=== PATIENT | male | born 1970 | race Caucasian/White ===

== ENCOUNTER 2021-12-18 09:25 | Outpatient (REF) | payer OTHER, SELFPAY ==
[2021-12-18 09:58] LABS: MANUAL DIFF FLAG NO
[2021-12-18 11:28] LABS: Basophils Absolute Auto 0.1 X10*3/uL (0.0-0.2); Basophils Percent Auto 1.7 % (0-2); Eosinophils Absolute Auto 0.1 X10*3/uL (0.0-0.4); Eosinophils Percent Auto 1.7 % (0-4); Hematocrit 53.4 % (42.0-52.0); Hemoglobin 17.4 g/dl (14.0-18.0); Imm Gran Abs Auto 0.04 X10*3/uL (0.00-0.03); Imm Gran Pct Auto 0.5 % (0.0-0.4); Immature Retic Fraction 12.3 % (2.3-13.4); Lymphocytes Absolute Auto 1.2 X10*3/uL (1.2-4.9); Lymphocytes Percent Auto 14.8 % (20-40); Mean Corpuscular HGB Conc 32.6 g/dl (31.0-36.0); Mean Corpuscular Hemoglobin 28.2 pg (27.0-33.0); Mean Corpuscular Volume 86.7 fL (80.0-98.0); Mean Platelet Volume 11.7 fL (9.4-12.4); Monocytes Absolute Auto 0.5 X10*3/uL (0.1-1.2); Monocytes Percent Auto 6.3 % (2-11); Neutrophils Absolute Auto 5.9 x10*3/uL (2.0-8.3); Platelet Count 320 X10*3/uL (160-400); Red Blood Count 6.16 X10*6/uL (4.60-5.80); Red Cell Distribution Width 16.7 % (11.0-16.0); Retic HGB Equivalent 31.6 pg (30.0-35.0); Reticulocyte Percent 1.6 % (0.5-1.8); Reticulocytes Absolute 0.097 X10*6/uL (0.026-0.095); White Blood Count 7.8 X10*3/uL (4.8-10.8)
[2021-12-18 12:42] LABS: Alanine Aminotransferase 18 U/L (0-40); Albumin Level 4.4 g/dL (3.5-5.0); Alkaline Phosphatase 39 U/L (39-117); Anion Gap 17 (12-20); Aspartate Amino Transferase 23 U/L (5-37); Bilirubin Total 2.2 mg/dL (0.0-1.0); Blood Urea Nitrogen 14 mg/dL (9-16); Calcium 9.5 mg/dL (8.4-10.2); Carbon Dioxide 25 mmol/L (22-29); Chloride 101 mmol/L (96-108); Cholesterol 120 mg/dL; Estimated Glomerular Filt Rate > 60; Glucose Random 94 mg/dL (60-115); HDL Cholesterol 55 mg/dL; Iron 87 mcg/dL (45-160); LDL Cholesterol Calculated 54 mg/dl; Percent Iron Saturation 30 % (15-50); Potassium 4.8 mmol/L (3.3-5.1); Sodium 138 mmol/L (135-145); Total Iron Binding Capacity 290 mcg/dL (228-428); Total Protein 7.7 g/dL (6.5-8.0); Triglycerides 56 mg/dL; Unsaturated Iron Binding 203 ug/dL
[2021-12-18 12:50] LABS: Ferritin 151 ng/mL (20-250); Free T4 (Free Thyroxine) 0.93 ng/dL (0.71-1.85); Prostate Specific Antigen Scr 0.66 ng/mL (<0.05-4.0); Thyroid Stimulating Hormone 0.79 uIU/mL (0.32-4.0)
[2021-12-18 13:01] LABS: Folate 9.4 ng/mL (> or = 4.0); Vitamin B12 474 pg/mL (200-900)
== END 2021-12-18 09:26 | disposition home or self-care (01) ==
LOC: HO.LAB 09:25
PROVIDERS: PCP Internal Medicine; Visit Provider Internal Medicine
DX: Z12.5 Encounter for screening for malignant neoplasm of prostate (principal); D47.1 Chronic myeloproliferative disease; E78.00 Pure hypercholesterolemia, unspecified
CPT/HCPCS: 36415; 80053; 80061; 82607; 82728; 82746; 83540; 84153; 84439; 84443; 85025; 85045

== ENCOUNTER 2023-11-14 11:16 | Outpatient (AMB) | payer OTHER, SELFPAY ==
[2023-11-14 11:21] VITALS: BP 130/78; PULSE 64; O2SAT 95; BMI 25.3
--- NOTE | 2023-11-14 11:21 | MHC.PC.OV ---
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 Required: No Accompanied by: Self / Same As Patient Allergies No Known Allergies [No Known Allergies*] Allergy (Verified 11/14/23 11:23) Medication List - Last Reconciled 11/14/23 by Meche Jamil MD albuterol sulfate 90 mcg/actuation 2 puffs inhalation QID PRN fluticasone propion-salmeterol 100-50 mcg/dose (Advair Diskus) 1 inh inhalation BID Tobacco use date assessed: 11/14/23 Dental Screening Dental Screen Date: 11/14/23 Did you have a dental visit in the last 12 months?: No Did you have a dental problem in the last 6 months where you did not have access to dental care?: No Was dental information given to patient?: No HPI PE HPI Details 53-year-old male(noted 16 lb weight gain) with a history of asthma myeloproliferative disorder generalized anxiety disorder and thoracic spine fracture coming in for physical exam last seen in May 2022. 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 L lung infection - drained [facility] Medical History (Updated 03/29/22 @ 15:51 by Meche Jamil MD) Colonoscopy refused Colon cancer screening Generalized anxiety disorder Splenic vein thrombosis Thoracic spine fracture Myeloproliferative disorder Asthma Thrombocytosis Surgical History H/O shoulder surgery Social History (Updated 11/14/23 @ 12:04 by Meche Jamil MD) Housing: House Alcohol intake: current Comment: QD 4 drinks Patient Tobacco Use Status: Former Tobacco user Tobacco use type: Cigarette Years Smoked: quit 2006 smokes pot e-Cigarette/Vaping Use: Never Used Second Hand Smoke Exposure: No Current occupational status: employed Cognitive needs: No Hearing needs: No Vision needs: No Questionnaire PHQ-9 Over the last 2 weeks, how often have you been bothered by any of the following problems? 1. Little interest or pleasure in doing things: several days 2. Feeling down, depressed, or hopeless: several days 3. Trouble falling or staying asleep, or sleeping too much: not at all 4. Feeling tired or having little energy: not at all 5. Poor appetite or overeating: not at all 6. Feeling bad about yourself - or that you are a failure or have let yourself or your family down: not at all 7. Trouble concentrating on things, such as reading the newspaper or watching television: not at all 8. Moving or speaking so slowly that other people could have noticed. Or the opposite - being so fidgety or restless that you have been moving around a lot more than usual: not at all 9. Thoughts that you would be better off or of hurting yourself in some way: not at all Total score: 2 Depression Screening Interpretation: Negative Depression Screening Done: Yes Source: Developed by Drs. Mitul Hart, Alysia Tobias, Ray Goodwin and colleagues, with an educational alaina from [employer]. Thrive Questionnaire Date Thrive assessed: 11/14/23 I am a: Patient What is your living situation today?: I have a steady place to live Within the past 12 months, did the food you bought not last and you didn't have the money to get more?: Never true Within the past 12 months, did you worry whether your food would run out before you got money to buy more?: Never true THRIVE Score: 0 AUDIT C Alcohol Use Questionnaire (AUDIT-C) 1. How often do you have a drink containing alcohol?: 2-4 times a month 2. How many drinks containing alcohol do you have on a typical day when you are drinking?: 1 or 2 3. How often do you have six or more drinks on one occasion?: Never Total Score: 2 MARCOS-7 AMB Questionnaire MARCOS-7 Date MARCOS - 7 assessed: 11/14/23 Feeling nervous, anxious, or on edge: 0 = Not at all Not being able to stop or control worryin = Not at all Worrying too much about different things: 0 = Not at all Trouble relaxin = Not at all Being so restless that it is hard to sit still: 0 = Not at all Becoming easily annoyed or irritable: 0 = Not at all Feeling afraid as if something awful might happen: 0 = Not at all Total MARCOS-7 score (0-4 normal; 5-9 mild; 10-14 moderate; 15-21 severe): 0 Source: Developed by Drs. Mitul Hart, Alysia Tobias, Ray Goodwin and colleagues, with an educational alaina from [employer]. MARCOS-7 Assessment Billing MARCOS-7 Assessment Tool: MARCOS-7 Assessment 70300 Review of Systems Const Denies poor appetite and Denies weakness Eyes Denies no additional complaints ENT Reports Normal hearing present, Denies dizziness, Denies nasal congestion, Denies tinnitus and Denies sore throat Card Denies chest pain, Denies syncope, Denies rapid heart rate and Denies dyspnea Resp Denies cough and Denies dyspnea GI Denies change in stool character, Reports constipation, Denies diarrhea, Denies nausea and Denies vomiting Denies dysuria and Denies urinary frequency Neuro Reports Normal hearing present, Denies confusion, Denies dizziness, Denies syncope and Denies weakness Psych Denies confusion Physical exam (Primary Care) Vital Signs: Last Vital Signs Pulse 64 11/14/23 11:21 BP 130/78 11/14/23 11:21 Pulse Ox 95 11/14/23 11:21 Oxygen Delivery Method Room Air 11/14/23 11:21 BMI result Body Mass Index 25.3 Tobacco/Smoking Status: Tobacco use Status Tobacco use date assessed 11/14/23 11/14/23 11:24 Patient Tobacco Use Status Former Tobacco user 11/14/23 12:04 Tobacco use type Cigarette 11/14/23 12:04 e-Cigarette/Vaping Use Never Used 11/14/23 12:04 PHQ-9: PHQ-9 Score PHQ-9: Total score 2 11/14/23 11:57 Depression Screening Interpretation: Negative Thrive Assessment: Date of Thrive Assessment Date Thrive assessed 11/14/23 11/14/23 11:24 Const General: No confusion Orientation/consciousness: No confusion HENMT Head: Yes normocephalic Ears: external ears normal and TM's normal bilaterally Face and sinus: Yes normal facial exam Mouth: moist mucous membranes Throat: Yes tonsils normal Eyes Conjunctivae: conjunctivae normal Pupils: Equal, round and reactive pupils present and Pupil accommodation reflex normal Direct Ophthalmoscopy: normal light reflex Neck Neck: No lymphadenopathy Thyroid: Thyroid normal Chest Chest palpation & inspection: normal inspection of the chest Resp Effort & Inspection: normal respiratory effort and no audible wheezes Auscultation: clear to auscultation bilaterally, no crackles, no wheezes and lung sounds not diminished Cardio Rate: regular rate Rhythm: regular rhythm Peripheral pulses: radial pulses present and dorsalis pedis present GI Other: declined Palpation (GI): no masses Auscultation: normal bowel sounds and normoactive bowel sounds Rectal Exam - Male: Yes deferred Other: declined Skin General skin exam: no rashes or lesions noted Rashes: no rashes Neuro General: No confusion Cranial nerves: Yes Equal, round and reactive pupils present and Yes Normal hearing present Cognition (Neuro): normal cognition Gait exam (Neuro): Normal gait present Motor exam (neuro): 5/5 motor strength present throughout Deep tendon reflexes (DTR's): Right brachioradialis reflex intensity grade: 2+, Left brachioradialis reflex intensity grade: 2+, Right patellar reflex intensity grade: 2+ and Left patellar reflex intensity grade: 2+ Extrem General: No edema Immunizations tetanus-diphtheria toxoids-Td 2 Lf unit-2 Lf unit/0.5 mL IM suspension Performing Provider: Meche Jamil MD [facility] Administered by: FÉLIX Frye on 11/14/23 12:25 Dose Route Admin Location Dispensed Lot Number Expiration Date [facility] [employer] 0.5 mL IM Left Deltoid 0.5 mL [id number] 04/08/24 [id number] [employer] VIS Given Date VIS Provided VIS Publication Date 11/14/23 Single Vaccine 20 Eligibility Eligibility Date Funding Source Not [facility] Eligible 11/14/23 [facility] funds Assessment and Plan Assessment & Plan (1) Annual physical exam: Code(s): Z00.00 - Encounter for general adult medical examination without abnormal findings Plan: Patient is advised to eat healthy, keep well hydrated, keep active and have adequate sleep. (2) Asthma: Code(s): J45.909 - Unspecified asthma, uncomplicated Plan: Presently on Wixela and albuterol. Remember to rinse mouth after using the controller inhaler. (3) Myeloproliferative disorder: Comment: Dr. Owens phlebotomy every 3 weeks Code(s): D47.1 - Chronic myeloproliferative disease (4) Generalized anxiety disorder: Comment: decline counselling 01/2021 Code(s): F41.1 - Generalized anxiety disorder Plan: Stable Orders: Orders Comprehensive Met. Panel Today D47.1 - Chronic myeloproliferative disease Lipid Panel Today D47.1 - Chronic myeloproliferative disease, E78.00 - Pure hypercholesterolemia, unspecified UA CC w/rflx Micro + Cult Today D47.1 - Chronic myeloproliferative disease, R30.0 - Dysuria Complete Blood Count Auto Diff Today D47.1 - Chronic myeloproliferative disease Free T4 (Free Thyroxine) Today D47.1 - Chronic myeloproliferative disease Thyroid Stimulating Hormone Today D47.1 - Chronic myeloproliferative disease Vitamin B12 and Folate Today D47.1 - Chronic myeloproliferative disease Prostate Specific Antigen Scr Today D47.1 - Chronic myeloproliferative disease Td State Immunization Today Z23 - Encounter for immunization Medications: New tetanus-diphtheria toxoids-Td 0.5 mL IM ONCE 0.5 mL 0RF Z23 - Encounter for immunization Coding Level of Care Code Est Pt Prev Care 40-64y([id number]) Diagnoses Annual physical exam Z00.00 Asthma J45.909 Myeloproliferative disorder D47.1 Generalized anxiety disorder F41.1 Additional Codes MARCOS-7 Assessment Billing - MARCOS-7 Assessment Tool: MARCOS-7 Assessment 09644 ([id number])
== END 2023-11-14 12:24 | disposition home or self-care (01) ==
PROVIDERS: PCP Internal Medicine; Visit Provider Internal Medicine
DX: Z00.00 Encounter for general adult medical examination without abnormal findings (principal); J45.909 Unspecified asthma, uncomplicated; D47.1 Chronic myeloproliferative disease; F41.1 Generalized anxiety disorder; Z23 Encounter for immunization

== ENCOUNTER → 2023-11-14 11:16 | Outpatient (BNVA) | payer OTHER, SELFPAY | PROVIDERS: PCP Internal Medicine; Visit Provider Internal Medicine | DX: Z00.00 Encounter for general adult medical examination without abnormal findings (principal); Z23 Encounter for immunization; J45.909 Unspecified asthma, uncomplicated; D47.1 Chronic myeloproliferative disease; F41.1 Generalized anxiety disorder; Z87.891 Personal history of nicotine dependence | CPT/HCPCS: 90471; 90714; 96127; 99396 ==

== ENCOUNTER 2024-02-06 10:35 | Outpatient (REF) | payer OTHER, SELFPAY ==
[2024-02-06 11:52] LABS: Mean Corpuscular HGB Conc 32.3 g/dl (31.0-36.0)
[2024-02-06 11:54] LABS: Basophils Absolute Auto 0.2 X10*3/uL (0.0-0.2); Eosinophils Absolute Auto 0.4 X10*3/uL (0.0-0.4); Eosinophils Percent Auto 4.2 % (0-4); Imm Gran Abs Auto 0.05 X10*3/uL (0.00-0.03); Imm Gran Pct Auto 0.6 % (0.0-0.4); Lymphocytes Absolute Auto 1.2 X10*3/uL (1.2-4.9); Lymphocytes Percent Auto 13.8 % (20-40); Mean Corpuscular Hemoglobin 24.3 pg (27.0-33.0); Monocytes Absolute Auto 0.5 X10*3/uL (0.1-1.2); Monocytes Percent Auto 6.3 % (2-11); Neutrophils Absolute Auto 6.3 x10*3/uL (2.0-8.3); Neutrophils Percent Auto 73.1 % (45-73); Red Blood Count 8.41 X10*6/uL (4.60-5.80); Red Cell Distribution Width 22.1 % (11.0-16.0)
[2024-02-06 12:51] LABS: Free T4 (Free Thyroxine) 1.12 ng/dL (0.71-1.85); Thyroid Stimulating Hormone 0.82 uIU/mL (0.32-4.0)
[2024-02-06 12:54] LABS: Anion Gap 15 (12-20)
[2024-02-06 13:08] LABS: Alanine Aminotransferase 24 U/L (0-40); Albumin Level 4.5 g/dL (3.5-5.0); Alkaline Phosphatase 51 U/L (39-117); Aspartate Amino Transferase 28 U/L (5-37); Bilirubin Total 2.5 mg/dL (0.0-1.0); Blood Urea Nitrogen 11 mg/dL (9-16); Calcium 9.5 mg/dL (8.4-10.2); Carbon Dioxide 29 mmol/L (22-29); Chloride 100 mmol/L (96-108); Cholesterol 111 mg/dL (<200); Estimated Glomerular Filt Rate > 60; Folate 7.9 ng/mL (> or = 4.0); Glucose Random 91 mg/dL (60-115); HDL Cholesterol 48 mg/dL (>40); LDL Cholesterol Calculated 46 mg/dL (<100); Potassium 3.8 mmol/L (3.3-5.1); Prostate Specific Antigen Scr 1.14 ng/mL (<0.05-4.0); Sodium 140 mmol/L (135-145); Total Protein 8.2 g/dL (6.5-8.0); Triglycerides 87 mg/dL (<150); Vitamin B12 562 pg/mL (200-900)
[2024-02-06 13:13] LABS: Platelet Count 242 X10*3/uL (160-400); White Blood Count 8.6 X10*3/uL (4.8-10.8)
[2024-02-06 13:15] LABS: Hemoglobin 20.4 g/dl (14.0-18.0)
[2024-02-06 13:16] LABS: Hematocrit 63.1 % (42.0-52.0)
[2024-02-06 14:32] LABS: Appearance Urine Clear; Color Urine Yellow; Glucose Urine UA Negative (Negative); Leukocyte Esterase Urine Negative (Negative); Nitrite Urine Negative (Negative); UMIC TRIGGER UACC YES; Urine Blood Negative (Negative); Urine Ketones Negative (Negative); Urine Protein 30 (1+) mg/dL (Neg-Trace)
[2024-02-06 14:35] LABS: Bacteria Urine None Seen (None Seen); Hyaline Casts Urine 0-2 /LPF (0-2); RBC Urine 0-2 /HPF (0-2); Squamous Epithelial Cell Urine 0-2 /HPF (0-2); WBC Urine 0-5 /HPF (0-5)
== END 2024-02-06 10:36 | disposition home or self-care (01) ==
LOC: HO.WFDLDS 10:35
PROVIDERS: Visit Provider Internal Medicine
DX: D47.1 Chronic myeloproliferative disease (principal); E78.00 Pure hypercholesterolemia, unspecified
CPT/HCPCS: 36415; 80053; 80061; 81001; 82607; 82746; 84153; 84439; 84443; 85025

== ENCOUNTER 2024-03-05 11:05 | Outpatient (AMB) | payer OTHER, SELFPAY ==
[2024-03-05 11:09] VITALS: BP 142/96; PULSE 79; O2SAT 96; BMI 24.9
--- NOTE | 2024-03-05 11:09 | MHC.PC.OV ---
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 Required: No Accompanied by: Self / Same As Patient Allergies No Known Allergies [No Known Allergies*] Allergy (Verified 03/05/24 11:09) Tobacco use date assessed: 03/05/24 Dental Screening Dental Screen Date: 03/05/24 Did you have a dental visit in the last 12 months?: Yes Did you have a dental problem in the last 6 months where you did not have access to dental care?: No Was dental information given to patient?: Patient has dentist HPI Hypertension HPI Details 53-year-old male with past medical history of asthma, mild proliferative disorder, generalized anxiety disorder and thoracic spine fracture last seen October 2023 coming in for follow up. Today he tells us he has not monitoring his blood pressure at home. He states he did not have a blood pressure cuff and did not want to monitor his blood pressures at home as she knows they are elevated because he has been stressed. Patient notes having increased stress at home due to work and current health. Has a history of seeing many different specialists including [facility] and [facility]. He also mentions having palpitations daily at night that he attributes to stress. Denies any chest pain or shortness of breath with the palpitations. [facility] Medical History (Updated 03/05/24 @ 12:27 by Kerry Vega PA-C) Empyema of lung Colonoscopy refused Colon cancer screening Generalized anxiety disorder Splenic vein thrombosis Thoracic spine fracture Myeloproliferative disorder Asthma Thrombocytosis Surgical History H/O shoulder surgery Social History Housing: House Alcohol intake: current Comment: QD 4 drinks Patient Tobacco Use Status: Former Tobacco user Tobacco use type: Cigarette Years Smoked: quit 2005 smokes pot e-Cigarette/Vaping Use: Never Used Second Hand Smoke Exposure: No Current occupational status: employed Cognitive needs: No Hearing needs: No Vision needs: No Questionnaire PHQ-9 Over the last 2 weeks, how often have you been bothered by any of the following problems? 1. Little interest or pleasure in doing things: several days 2. Feeling down, depressed, or hopeless: several days 3. Trouble falling or staying asleep, or sleeping too much: not at all 4. Feeling tired or having little energy: not at all 5. Poor appetite or overeating: not at all 6. Feeling bad about yourself - or that you are a failure or have let yourself or your family down: not at all 7. Trouble concentrating on things, such as reading the newspaper or watching television: not at all 8. Moving or speaking so slowly that other people could have noticed. Or the opposite - being so fidgety or restless that you have been moving around a lot more than usual: not at all 9. Thoughts that you would be better off or of hurting yourself in some way: not at all Total score: 2 Depression Screening Interpretation: Negative Depression Screening Done: Yes Source: Developed by Drs. Mitul Hart, Alysia Tobias, Ray Goodwin and colleagues, with an educational alaina from [employer]. Thrive Questionnaire Date Thrive assessed: 03/05/24 I am a: Patient What is your living situation today?: I have a steady place to live Within the past 12 months, did the food you bought not last and you didn't have the money to get more?: Never true Within the past 12 months, did you worry whether your food would run out before you got money to buy more?: Never true Do you have trouble paying for medicines?: No Do you have trouble getting transportation to medical appointments?: No Do you have trouble paying your heating and electricity bill?: No Do you have trouble taking care of your child, family member or friend?: No Do you have trouble with day-to-day activities such as bathing, preparing meals, shopping, managing finances, etc.?: No Are you currently unemployed and looking for a job?: No Are you interested in more education?: No Please select the resources that you would like help with: None Currently or been in a relationship where the following occur: No concerns reported THRIVE Score: 0 AUDIT C Alcohol Use Questionnaire (AUDIT-C) 1. How often do you have a drink containing alcohol?: 2-4 times a month 2. How many drinks containing alcohol do you have on a typical day when you are drinking?: 1 or 2 3. How often do you have six or more drinks on one occasion?: Never Total Score: 2 MARCOS-7 AMB Questionnaire MARCOS-7 Date MARCOS - 7 assessed: 03/05/24 Feeling nervous, anxious, or on edge: 3 = Nearly every day Not being able to stop or control worryin = Nearly every day Worrying too much about different things: 3 = Nearly every day Trouble relaxin = Not at all Being so restless that it is hard to sit still: 0 = Not at all Becoming easily annoyed or irritable: 0 = Not at all Feeling afraid as if something awful might happen: 0 = Not at all Total MARCOS-7 score (0-4 normal; 5-9 mild; 10-14 moderate; 15-21 severe): 9 Source: Developed by Drs. Mitul Hart, Alysia Tobias, Ray Goodwin and colleagues, with an educational alaina from [employer]. MARCOS-7 Assessment Billing MARCOS-7 Assessment Tool: MARCOS-7 Assessment 49072 Review of Systems Const Denies body aches, Denies chills, Denies fever(s) and Denies poor appetite Eyes Reports no additional complaints Card Denies chest pain, Denies syncope, Denies edema, Denies irregular heart rhythm, Denies lightheadedness and Denies dyspnea Resp Denies cough and Denies dyspnea GI Denies abdominal pain, Denies constipation, Denies diarrhea, Denies nausea and Denies vomiting Reports no additional complaints Musc Reports no additional complaints and Denies abnormal gait Skin/Breast Reports system reviewed and no additional complaints, except as documented Neuro Denies abnormal gait and Denies syncope Psych Reports no additional complaints Physical exam (Primary Care) Vital Signs: Last Vital Signs Pulse 79 03/05/24 11:09 BP 142/96 H 03/05/24 11:09 Pulse Ox 96 03/05/24 11:09 Oxygen Delivery Method Room Air 03/05/24 11:09 BMI result Body Mass Index 24.9 Tobacco/Smoking Status: Tobacco use Status Tobacco use date assessed 03/05/24 03/05/24 11:14 Patient Tobacco Use Status Former Tobacco user 03/05/24 11:14 Tobacco use type Cigarette 03/05/24 11:14 e-Cigarette/Vaping Use Never Used 03/05/24 11:14 PHQ-9: PHQ-9 Score PHQ-9: Total score 2 03/05/24 11:18 Depression Screening Interpretation: Negative Thrive Assessment: Date of Thrive Assessment Date Thrive assessed 03/05/24 03/05/24 11:14 Currently or been in a relationship where the following occur: No concerns reported Const General: cooperative, healthy appearing, comfortable and no acute distress Orientation/consciousness: patient oriented x3 HENMT Head: Yes normocephalic Ears: hearing grossly normal bilaterally General nose exam: Normal external nose present Eyes General: appearance normal, both eyes and all related structures Conjunctivae: conjunctivae normal Neck Neck: Yes full ROM and Yes no lymphadenopathy Resp Effort & Inspection: normal respiratory effort Auscultation: clear to auscultation bilaterally, no crackles, no rales, no rhonchi and no wheezes Cardio Rate: regular rate Rhythm: regular rhythm Skin General skin exam: no rashes or lesions noted Neuro General: patient oriented x3 Gait exam (Neuro): Normal gait present Extrem General: Yes normal to inspection, Yes full ROM and No edema Psych Affect: normal affect Attitude: cooperative Insight: Good insight present (Psych) Judgement: Good judgement present (Psych) Coding Level of Care Code Est Pt Level 4 (61263) Diagnoses Palpitations R00.2 Generalized anxiety disorder F41.1 Myeloproliferative disorder D47.1 Hypertension I10 Additional Codes MARCOS-7 Assessment Billing - MARCOS-7 Assessment Tool: MARCOS-7 Assessment 79184 ([id number]) Assessment & Plan Assessment & Plan (1) Palpitations: Code(s): R00.2 - Palpitations Category: Medical Plan: Patient complaining of nightly palpitations ordered for 3 day Holter monitor reviewed red flag symptoms and when to present for re-evaluation. (2) Generalized anxiety disorder: Comment: decline counselling 01/2021 Code(s): F41.1 - Generalized anxiety disorder Category: Medical Plan: Continues to decline counseling and not currently on medical management. Does note increased anxiety and stress surrounding current health and work l situation. (3) Myeloproliferative disorder: Comment: Dr. Owens phlebotomy every 3 weeks Code(s): D47.1 - Chronic myeloproliferative disease Category: Medical Plan: Patient having elevated blood lines recommended by Dr. Jamil to have urgent consult with Hematology which patient has been putting off due to work. In the office today patient did become irritated and confrontational when discussing hematology appointment stating he is unable to get the time off from work. I did advise the patient that he will be provided with a note from our office to be excused for this appointment as it is recommended by our office. Discussed possibility of FMLA paperwork as he will need to be absent for several days. Patient declining this and states he wants disability however has not filed paperwork. Discussed with patient at length that he needs to provide our office with his completed portion of disability paperwork before can be filled out. Patient states no one is willing to help him and becomes grossly frustrated. Patient understands he needs to be seen by Hematology and I will have the office reach out to reschedule an appointment. Patient understands and agrees to go to this appointment. If he needs anything further to reach out to the office in the meantime. Otherwise he has an appointment with Dr. Jamil in the coming months. (4) Hypertension: Code(s): I10 - Essential (primary) hypertension Category: Medical Plan: Not currently on medical management blood pressure elevated 142/96. Patient declined to have blood pressure repeated as he states it we will continue to be elevated due to stress. Avoid salt intake and encourage healthy diet and regular exercise. Plan This note was constructed using voice recognition software. While every effort has been made to ensure accuracy and operating engineer, still areas may have been included sometimes these areas may affect the content or meeting of the given symptoms. Total time spent caring for the patient today was 20 minutes. This includes time spent before the visit reviewing the chart, time spent during the visit, and time spent after the visit and documentation. Orders: Orders ECG 3 day holter monitor Today R00.2 - Palpitations
== END 2024-03-05 11:41 | disposition home or self-care (01) ==
PROVIDERS: PCP Internal Medicine
DX: R00.2 Palpitations (principal); F41.1 Generalized anxiety disorder; D47.1 Chronic myeloproliferative disease; I10 Essential (primary) hypertension

== ENCOUNTER → 2024-03-05 11:05 | Outpatient (BNVA) | payer OTHER, SELFPAY | PROVIDERS: PCP Internal Medicine | DX: I10 Essential (primary) hypertension (principal); J45.909 Unspecified asthma, uncomplicated; F41.1 Generalized anxiety disorder; R00.2 Palpitations; D47.1 Chronic myeloproliferative disease | CPT/HCPCS: 96127; 99212 ==

== ENCOUNTER → 2024-04-22 13:06 | Outpatient (BNV) | payer OTHER, SELFPAY | PROVIDERS: PCP Internal Medicine; Referring Provider Internal Medicine; Visit Provider Internal Medicine | DX: D47.1 Chronic myeloproliferative disease (principal) | CPT/HCPCS: 99204; G2211 ==

== ENCOUNTER 2024-05-14 09:53 | Outpatient (AMB) | payer OTHER, SELFPAY ==
--- NOTE | 2024-05-14 09:59 | A.OFFPC_ITS ---
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 Operator Required: No Community Association Manager: Not Required per policy Accompanied by: Self / Same As Patient Allergies No Known Allergies [No Known Allergies*] Allergy (Verified 05/14/24 10:00) Medication List - Last Reconciled 05/14/24 by Meche Jamil MD albuterol sulfate 90 mcg/actuation 2 puffs inhalation QID PRN apixaban (Eliquis) 5 mg PO BID aspirin 1 tab PO DAILY fluticasone propion-salmeterol 100-50 mcg/dose (Advair Diskus) 1 inh inhalation BID hydroxyurea 500 mg PO DAILY pantoprazole (Protonix) 40 mg PO DAILY Tobacco use date assessed: 05/14/24 Dental Screening Dental Screen Date: 03/05/24 [facility] Medical History (Updated 04/22/24 @ 18:16 by Melita Owens MD) Empyema of lung Colonoscopy refused Colon cancer screening Generalized anxiety disorder Splenic vein thrombosis Thoracic spine fracture Myeloproliferative disorder Asthma Thrombocytosis Surgical History H/O shoulder surgery Social History Household Members: None Housing: House Alcohol intake: current Comment: QD 4 drinks Patient Tobacco Use Status: Former Tobacco user Tobacco use type: Cigarette Years Smoked: quit 2006 smokes pot e-Cigarette/Vaping Use: Never Used Second Hand Smoke Exposure: No Substance Use Type: Marijuana service: No Current occupational status: employed Cognitive needs: No Hearing needs: No Vision needs: No Questionnaire Thrive Questionnaire Date Thrive assessed: 03/05/24 MARCOS-7 AMB Questionnaire MARCOS-7 Date MARCOS - 7 assessed: 03/05/24 Source: Developed by Drs. Mitul Hart, Alysia Tobias, Ray Goodwin and colleagues, with an educational alaina from [employer]). Physical exam (Primary Care) Vital Signs: Last Vital Signs Temp 97.5 F 05/14/24 10:00 Pulse 78 05/14/24 10:00 BP 124/78 05/14/24 10:37 Pulse Ox 98 05/14/24 10:00 Oxygen Delivery Method Room Air 05/14/24 10:00 BMI result Body Mass Index 24.9 Tobacco/Smoking Status: Tobacco use Status Tobacco use date assessed 05/14/24 05/14/24 10:04 Patient Tobacco Use Status Former Tobacco user 05/14/24 10:04 Tobacco use type Cigarette 05/14/24 10:04 e-Cigarette/Vaping Use Never Used 05/14/24 10:04 Thrive Assessment: Date of Thrive Assessment Date Thrive assessed 03/05/24 05/14/24 10:04 Const General: alert; No acute distress Eyes Conjunctivae: conjunctivae normal Resp Auscultation: clear to auscultation bilaterally Cardio Rate: regular rate Rhythm: regular rhythm GI Inspection: Yes normal to inspection Extrem General: Yes normal to inspection and No edema Coding Level of Care Code Est Pt Level 4 (51236) Diagnoses Myeloproliferative disorder D47.1 Asthma J45.909 Generalized anxiety disorder F41.1 Hypertension I10 Assessment & Plan Assessment & Plan (1) Myeloproliferative disorder: Comment: Dr. Owens phlebotomy every 3 weeks Code(s): D47.1 - Chronic myeloproliferative disease Category: Medical Plan: Patient has been follow-up with Hematology-Oncology on hydroxyurea and therapeutic phlebotomies being done and continue with aspirin (2) Asthma: Code(s): J45.909 - Unspecified asthma, uncomplicated Category: Medical Plan: Continue with Advair and albuterol (3) Generalized anxiety disorder: Comment: decline counselling 01/2021 Code(s): F41.1 - Generalized anxiety disorder Category: Medical (4) Hypertension: Code(s): I10 - Essential (primary) hypertension Category: Medical Plan: Patient comes in for follow-up. BP is good without med Plan History of Present Illness The patient is a 53-year-old male presenting for follow-up care and management of multifaceted chronic conditions, including essential thrombocythemia with a JAK2 mutation, managed pharmacologically and by therapeutic phlebotomies. Recent diagnostic imaging indicates further varices and esophageal thickening, alongside prior significant blood workup findings, including elevated hemoglobin. Chronic respiratory complaints correlate with stable emphysema and nodular findings. Asthma control is maintained under appropriate inhaled therapies. His thoracic spine complications continue to produce chronic pain, managed conservatively until further orthopedic insight is pursued. The patient reports heightened anxiety and depressive symptoms, opting to manage without additional psychiatric medication due to side effects and past minimal relief. Recent consultations addressed possible advancing gastrointestinal pathology, necessitating ongoing surveillance due to associated risks. Blood pressure remains suboptimal despite adherence to prescribed medication regimens. Reassurance is reinforced concerning routine laboratory monitoring, including renal function due to anticoagulant therapy concerns. Health Maintenance - Continued adherence to Advair and Albuterol inhalers for asthma management. - Hydroxyurea, aspirin, and regular therapeutic phlebotomies for thrombocythemia control. - Maintenance of current antihypertensive regimen. - Recommendation for ongoing evaluation of lung nodules and esophageal varices. - Encouragement of healthy dietary habits to manage blood pressure and overall well-being. - Precautionary discussions regarding potential gastrointestinal risks. Social History - Navigating employment challenges while managing multiple health conditions. - Reports dietary improvements, striving for healthier eating patterns. - Limited financial resources affecting healthcare access and medication purchases. - Manages environmental limitations with a focus on reducing stressors contributing to overall anxiety. Review of Systems - Cardiovascular: Reports episodes of chest pain and visibly high chronic blood pressures. - Musculoskeletal: Reports severe and persistent back pain associated with prior spinal injuries. - Respiratory: Reports no recent exacerbation of ' asthma, but chronic headaches are present. - Neurological: Reports increased occurrences of headaches, possibly linked to vertebral injury and stress. Physical Exam - Respiratory- Lung auscultation performed - No salient abnormalities noted during current visit. Results - Labs: Elevated hemoglobin noted at last outpatient blood work (19.1 g/dL); renal function reported as normal. - Imaging: CAT scan indicates left upper lobe nodules and stable mild emphysema, with nodules unchanged since January 2024. Plan The patient will adhere to hydroxyurea and aspirin therapy under hematology guidance, continuing therapeutic phlebotomies. Radiological surveillance will be scheduled for lung nodule assessment to mitigate oncogenic risk. Ongoing antihypertensive regimens should be evaluated topically against reported chronic hypertension; diet modification aids complement this process. Asthma management with bronchodilator reliance remains suitable given unperturbed severity in recent months. Notable gastric varices necessitate judicious medication review, advocated by widened surveillance of esophageal conditions. Chronic back pain strategies should evolve from current reliance on non-pharmacological interventions and reinforce collaborative care approaches, echoing the patient's aversion to novel medications. Finally, discussions reinforcing ongoing screening measures and lifestyle adaptation reinforce preventative concerns identified in this visit. Patient was informed and verbally consented to the use of an ambient scribe for clinic note documentation during this visit. Discussion Notes Today's consultation focused on managing the patient's intricate medical history, weighing current therapies against emerging symptoms. Discussions included hematology engagement, centered around hydroxyurea continuation and improved blood draw coordination for thrombocythemia surveillance. Risks from nodular lung matter were emphasized as manageable, with patient education provided around scan intervals, weighing any lifestyle alterations deferentially. Cardio-metabolic risks prompted adjustments to hypertension strategies?despite persisting challenges, suggesting reevaluation of dosage efficacy. Review of myeloproliferative disorder management reiterated avoiding novel anticoagulants, patient preference being central. Despite reported discomfort, proactive dialogue stressed non-pharmacological interventions for spinal discomfort. Risk-benefit considerations were comprehensively discussed regarding lifestyle-linked gastric pathologies. Patient Instructions - Continue taking hydroxyurea and daily aspirin as prescribed. - Follow dietary recommendations to lower blood pressure. - Schedule regular follow-ups and blood work to monitor platelet counts and hemoglobin levels. - Report any changes in respiratory symptoms or chest pain immediately. - Adhere to inhaler regimen for asthma management. - Plan for imaging studies as advised for continued nodule evaluation. - Attend and actively participate in regular checkups for optimal chronic disease management. - Seek immediate care for significant changes in symptoms or worsening of current conditions. Orders: Orders Comprehensive Met. Panel Today D47.1 - Chronic myeloproliferative disease Complete Blood Count Auto Diff Today D47.1 - Chronic myeloproliferative disease
[2024-05-14 10:00] VITALS: BP 140/80; PULSE 78; TEMP 36.4; O2SAT 98; BMI 24.9
[2024-05-14 10:37] VITALS: BP 124/78
--- OUTSIDE RECORDS SUMMARY | 2024-05-14 11:09 | XMS_ITS | Continuity of Care Document ---
Author Organization [facility] Address [address] [place] [address] jay, [address] [place] [address]- Care Team Providers Care Supervisor Pigment Making Name Role Phone Not on Staff, PCP Primary Care Physician Unavail able Encounter [facility] Date(s): 04/23/24 - 04/30/24 [facility] [address] [place] [address] Drive [address] [place] [address]- Attending Physician: Not on Staff, Attending MD Encounter Type: Office Visit Allergies, Adverse Reactions, Alerts Substance Criticality Severity Reaction Reaction Severity Status morphine 1 nausea Active 1nausea Immunizations Given and Recorded Vaccine Date Status Refusal Reason tetanus/diphtheria/pertussis, acel(Tdap) 04/10/15 Given Influenza Virus Vaccine (oldterm) 1 12/27/06 Given diphtheria-tetanus toxoids (DT) 05/26/02 Given 1Admin Note: declined Medications Advair Diskus 100 mcg-50 mcg inhalation powder 1, puffs, Inhalation, 2 times a day, # 60 each, Refills 1, Tot. Refills 1, Maintenance, 03/06/18 12:20:36 PM EST, Route to Pharmacy Electronically, [id number], [id number] Start Date: 03/06/18 Stop Date: 05/05/18 Status: Ordered Quantity: 60.0 Unit: each Repeat number: 2 apixaban 5 mg oral tablet = 5 mg, By Mouth, 2 times a day, Refill by Estate Planning Paralegal or PCP, # 60 tablet, 0 Refills, Maintenance, 04/06/24 12:49:00 PM EST, Tablet, [facility], Partial fill upon patient request if theprescription is for a schedule II opioid drug., 188, cm, 04/06/24 11:20:00 EST, Height, 82, kg, 04/03/24 4:02:00 EST, Dry Weight Start Date: 04/06/24 Status: Ordered Quantity: 60.0 Unit: tablet Repeat number: 1 aspirin 81 mg oral tablet, chewable 81 mg, By Mouth, Daily, Refill by Estate Planning Paralegal or PCP, # 30 tablet, Refills 0, Tot. Refills 0, Maintenance, 04/06/24 12:50:00 PM EST, Route to Pharmacy Electronically, [facility], Partialfill upon patient request if the prescription is for a schedule II opioid drug., 188, cm, 04/06/24 11:20:00 EST, Height, 82, kg, 04/03/24 4:02:00 EST, Dry Weight Start Date: 04/06/24 Status: Ordered Quantity: 30.0 Unit: tablet Repeat number: 1 Hydrea 500 mg oral capsule = 500 mg, By Mouth, 2 times a day, Refill by Estate Planning Paralegal or PCP, # 60 tablet, 0 Refills, Acute 05/06/24 10:22:00 PM EDT, 04/06/24 12:51:00 PM EST, Capsule, [facility], Partial fill upon patient request if the prescription is for a schedule II opioid drug., 188, cm, 04/06/24 11:20:00 EST, Height, 82, kg, 04/03/24 4:02:00 EST, Dry Weight Start Date: 04/06/24 Stop Date: 05/06/24 Status: Ordered Quantity: 60.0 Unit: tablet Repeat number: 1 pantoprazole 40 mg oral delayed release tablet = 40 mg, By Mouth, Daily, Take daily for the rest of your life. Refill by PCP or GI., # 30 tablet, 0 Refills, Maintenance, 04/06/24 12:51:00 PM EST, EC Tablet, 188, cm, 04/06/24 11:20:00 EST, Height, 82, kg, 04/03/24 4:02:00 EST, Dry Weight Start Date: 04/06/24 Status: Ordered Quantity: 30.0 Unit: tablet Repeat number: 1 ProAir HFA 90 mcg/inh inhalation aerosol 2 puffs, Inhalation, 4 times a day, PRN Wheezing/Shortness of Breath, Maintenance, 06/02/23 7:08:00 PM EDT, Partial fill upon patient request if the prescription is for a schedule II opioid drug. Start Date: 06/02/23 Status: Ordered Repeat number: 1 Problem List Condition Confirmation Course Effective Dates Status Health Status Informant Asthma Confirmed Active Chronic pain Confirmed Active Compression fracture of spine - T8 Confirmed Active Splenic varices Confirmed Active Gastric varices Confirmed Active Gilbert's disease Confirmed Active History of medical problems 1 Confirmed Active H/O splenomegaly Confirmed Active Low back pain Confirmed Active Major depression Confirmed Active Myeloproliferative disorder Confirmed Active Neck pain Confirmed Active Lower extremity pain Confirmed Active Splenic vein thrombosis Confirmed Active Mid back pain Confirmed Active 1Pain relevant problem list includes: See below Vital Signs Most recent to oldest [Reference Range]: 1 Height 188 cm (04/23/24 9:09 AM) Weight 83 kg (04/23/24 9:09 AM) Oxygen Saturation [94-100 %] 94 % (04/23/24 9:09 AM) Pulse Rate [55-90 bpm] 76 bpm (04/23/24 9:09 AM) Body Mass Index [18.5-24.99 kg/m2] 23.48 kg/m2 (04/23/24 9:09 AM) Blood Pressure [90-138/55-84 mm Hg] 124/ 82mm Hg (04/23/24 9:09 AM) Temperature [96.8-100.4 DegF] 97.3 DegF (04/23/24 9:09 AM) Mode of Delivery (Oxygen) Room air (04/23/24 9:09 AM) Blood pressure sites Arm, left (04/23/24 9:09 AM) Temperature Route Temporal (04/23/24 9:09 AM) Weight Obtained Via Standing scale (04/23/24 9:09 AM) Social History Social History Type Response Smoking Status Former smoker, quit more than 30 days ago entered on: 05/29/23 Sex Sex Representation Male (finding) Note * Lea Koch: PERFORM Event Display: Patient Education/Instruction Authored Date: [id number] Ambulatory Adult Visit Summary [facility] [address] [place] [address] Drive [address] [place] [address] Name: JANNETH HUFF : 1970?? Visit: 04/23/2024 09:01?? Ambulatory Visit Instructions ?? Your Care Team Primary Care Provider Roxanne LEONG, Mark? This Visit Provider Jeison DARBY , Tameka Marquez Vitals Signs Temperature: 97.3 DegF Height: 188 cm Pulse Rate: 76 bpm Weight: 83 kg Systolic Blood Pressure: 124 mm Hg Body Mass Index: 23.48 kg/m2 Diastolic Blood Pressure: 82 mm Hg Body surface area: 2.08 Oxygen Saturation: 94 % ?? What to do next Instructions From Your Provider [facility] [address] [place] [address] [address] [place] [address] ?? [facility]. [facility], [facility], [facility]? Dr. Raven Park MD, MPH, FACS? Dr. Eugene Verde, DO, FACS? Tameka Mchugh, MSN, WEB SUPPORT ENGINEER- ?? Office Phone #: [phone]? Office Fax #: [phone] ? Your most recent CT scan is stable.?There??is??stable scarring in??the??left base.?There??areno new??or??enlarging nodules??or masses.?You do not require??further??routine??follow up??with thoracic??surgery.?? You should continue to follow with your primary care provider and hematology for your other medical issues.?Please call with any further questions or concerns.? Medications The list below reflects the information in our records and provided by you today along with any changes made during this visit. Please continue your medications until treatment is completed or stopped by your provider. If this is different from the information you have or there are other questions,please contact the prescribing provider. What How Much When Instructions Unchanged Albuterol (ProAir HFA 90 mcg/ inh inhalation aerosol) 2 puff(s) Inhalation 4 times a day as needed for Wheezing/Shortness of Breath Unchanged apixaban (apixaban 5 mg oral tablet) 5 Milligram Oral Twice a day Refill by Estate Planning Paralegal or PCP ?? Unchanged Aspirin (aspirin 81 mg oral tablet, chewable) 81 Milligram Oral Daily Refill by Estate Planning Paralegal or PCP ?? Unchanged Fluticasone-Salmeterol (Advair Diskus 100 mcg-50 mcg inhalation powder) 1 puff(s) Inhalation Twice a day Duration: 30 Days Unchanged Hydroxyurea (Hydrea 500 mg oral capsule) 500 Milligram Oral Twice a day Refill by Estate Planning Paralegal or PCP ?? Unchanged Pantoprazole (pantoprazole 40 mg oral delayed release tablet) 40 Milligram Oral Daily Take daily for the rest of your life. ??Refill by PCP or GI. ?? Medications and Immunizations Administered Medications Given During Visit No medications given during this visit.?? Allergies (NKA means No Known Allergies) morphine??(nausea) Common Emergency Awareness Tips IS IT A STROKE? Act FAST and Check for these signs: FACE Does the face look uneven? ARM Does one arm drift down? SPEECH Does their speech sound strange? TIME Call at any sign of stroke ?? Heart Attack Signs Chest discomfort: Most heart attacks involve discomfort in the center of the chest and lasts more than a few minutes, or goes away and comes back. It can feel like uncomfortable pressure, squeezing, fullness or pain. Discomfort in upper body: Symptoms can include pain or discomfort in one or both arms, back, neck, jaw or stomach. Shortness of breath: With or without discomfort. Other signs: Breaking out in a cold sweat, nausea, or lightheaded. Remember, MINUTES DO MATTER. If you experience any of these heart attack warning signs, call to get immediate medical attention! ?? Smoking can increase your chances of developing chronic health problems and can cause harmful effects to other family members in your house. If you smoke, you are strongly encouraged to quit. Please call [employer] at [phone] or [phone] ([phone]) or log in to [email or web address] for referrals to smoking cessation programs. ?? The National Suicide Prevention Hotline is available 19/09 if you or someone you know needs to find a reason to keep living. By calling 1-654-307-talk (8255) you'll be connected to a skilled, trained counselor at a crisis center in your area. [facility] [employer] Portal You can view and manage your care through the patient portal or by using a health care kofi of your choosing. [employer] is a website that allows you to securely view your medical information including your hospital discharge summary, office visit summaries, medications and follow-up visits. You can also request appointments, renew medications, and request access to your medical information using a health care kofi of your choosing, or just ask a question. You can enroll at [email or web address] or register during your next office visit. [facility], in keeping with [facility] guidance, no longer requires face masks for staff, patientsor visitors in most situations. Similiar to time spent indoors at other locations, there is the chance that you were exposed to repiratory viruses during your time with us (such as flu or COVID-19). If you develop symptoms concerning for a viral respiratory infection, please seek testing (and treatment if indicated) from your medical provider or home test kit. ?? Disclaimer: The information provided is of a general nature and is intended to be used in conjunction with the recommendations and advice of your health care practitioner. Every effort has been made to ensure that the information provided is accurate and complete at the time it is provided to you however, as your needs change, or, as new information becomes available, different or additional instructions may be required. ?? If you have questions, please consult with your primary care provider or pharmacist, as appropriate. This information is not intended to serve as substitution for assessment and evaluation by a qualified health care provider. If you do not have a primary care provider, you may find a [facility] provider by calling [facility] [employer] Link at [phone]. Patient Care team information Care Team Personnel Name: Keith Sevilla MD Position: [facility] Physician - Gastroenterology Member Role: Lifetime Consulting Physician Address: [address], [address] [facility] [place], [place] [address] Telecom: Name: Kiana Kelly RN Position: S RN Member Role: Primary Care Nurse Name: Mai Lovett RN Position: S RN Member Role: Primary Care Nurse Name: Kiana Munguia RN Position: [facility] RN Member Role: Primary Care Nurse Name: Antionette TORRES) [place] Position: [facility] RN Member Role: Primary Care Nurse Name: Not on Staff, PCP Position: [facility] Physician (General Medicine) Member Role: PCP Name: Nallely Carter RN Position: [facility] RN Member Role: Primary Care Nurse Name: Luna Bull RN Position: [facility] RN Member Role: Primary Care Nurse Care Team Related Persons Name: WILFRED SÁNCHEZ Name: RAUL SÁNCHEZ Name: NOONE, NOONE Insurance Providers Guarantor name: JANNETH HUFF Health Plan Information #: 6 Payer: [employer] Member Number: [id number] Policy Number: Group Number: Health Plan Information #: 7 Payer: [employer] Member Number: [id number] Policy Number: Group Number: Health Plan Information #: 3 Payer: [employer] [facility] A[facility] Member Number: [id number] Policy Number: NA Group Number: Health Plan Information #: 4 Payer: [employer] Member Number: [id number] Policy Number: NA Group Number: Health Plan Information #: 5 Payer: [employer] Member Number: [id number] Policy Number: NA Group Number: Health Plan Information #: 1 Payer: [employer] Member Number: [id number] Policy Number: NA Group Number: Health Plan Information #: 2 Payer: [employer] Member Number: NA Policy Number: NA Group Number: NA
== END 2024-05-14 10:43 | disposition home or self-care (01) ==
LOC: HO.HMCH 09:54
PROVIDERS: PCP Internal Medicine; Visit Provider Internal Medicine
DX: D47.1 Chronic myeloproliferative disease (principal); J45.909 Unspecified asthma, uncomplicated; F41.1 Generalized anxiety disorder; I10 Essential (primary) hypertension

== ENCOUNTER → 2024-05-14 09:53 | Outpatient (BNVA) | payer OTHER, SELFPAY | PROVIDERS: PCP Internal Medicine; Visit Provider Internal Medicine | DX: D47.1 Chronic myeloproliferative disease (principal); J45.909 Unspecified asthma, uncomplicated; F41.1 Generalized anxiety disorder; I10 Essential (primary) hypertension | CPT/HCPCS: 99212 ==

== ENCOUNTER 2024-06-21 09:21 | Outpatient (REF) | payer MEDICAID, SELFPAY ==
--- OUTSIDE RECORDS SUMMARY | 2024-06-21 09:33 | XMS_ITS | Clinical Summary ---
Author Organization [employer] Address [address] [facility] 7 [place] [address] Care Team Providers Care County Treasurer Name Role Phone Unavailable Primary Care Provider Unavailabl e Social History Tobacco Use Types Packs/Day Years Used Date Smoking Tobacco: Never Assessed Sex and Gender Information Value Date Recorded Sex Assigned at Not on file Legal Sex Male 4:17 PM EDT Gender Identity Male 06/19/2024 2:54 PM EDT Sexual Orientation Straight 06/19/2024 2: 54 PM EDT Plan of Treatment Upcoming Encounters Date Type Department Care Team (Late st Contact Info) Description 07/09/2024 9:00 AM EDT Office Visit [facility] [address] [place] [address] Xiang Gillespie, OD [address] [place] [address] Health Maintenance Due Date Last Done Comments CT Colonography 1969 Colonoscopy 1969 Colorectal Cancer Screening 1969 Depression Screening 1969 FIT DNA/Cologuard 1969 FIT 1969 FOBT 1969 HIV Screening 1969 Lipid Panel 1969 SDOH Screening 1969 Sigmoidoscopy 1969 Alcohol/Substance Use Screening 1981 Tobacco Screening 1981 Hepatitis C Screening 10/17/1987 DTaP/Tdap/Td Vaccines (1 - Tdap) 1988 Hepatitis B Vaccines (1 of 3 - 19+ 3-dose series) 1988 Pneumococcal Vaccine: 50+ Ye ars (1 of 1 - PCV) 10/17/2019 Zoster Vaccines (1 of 2) 10/17/2019 COVID-19 Vaccine ( - 2023-2 5 season) 2023 Influenza Vaccine (#1) 2023 RSV Patients and Pa tients Aged 60 years or older (1 - 1-dose 75+ series) 2044 HIB Vaccines Aged Out No longer eligi ble based on patient's age to complete this topic HPV Vaccines Aged Out No longer eligi ble based on patient's age to complete this topic Hepatitis A Vaccines Aged Out No long er eligible based on patient's age to complete this topic IPV Vaccines Aged Out No longer eligi ble based on patient's age to complete this topic Meningococcal Vaccine Aged Out No mario errol eligible based on patient's age to complete this topic RSV under 20 months Aged Out No longe r eligible based on patient's age to complete this topic Rotavirus Vaccines Aged Out No longer eligible based on patient's age to complete this topic
[2024-06-21 10:21] LABS: MANUAL DIFF FLAG NO
[2024-06-21 10:30] LABS: Basophils Absolute Auto 0.1 X10*3/uL (0.0-0.2); Basophils Percent Auto 1.6 % (0-2); Eosinophils Absolute Auto 0.1 X10*3/uL (0.0-0.4); Eosinophils Percent Auto 2.1 % (0-4); Hemoglobin 18.6 g/dl (14.0-18.0); Imm Gran Abs Auto 0.05 X10*3/uL (0.00-0.03); Imm Gran Pct Auto 0.7 % (0.0-0.4); Lymphocytes Absolute Auto 1.1 X10*3/uL (1.2-4.9); Lymphocytes Percent Auto 16.7 % (20-40); Mean Corpuscular HGB Conc 32.8 g/dl (31.0-36.0); Mean Corpuscular Hemoglobin 27.4 pg (27.0-33.0); Mean Corpuscular Volume 83.6 fL (80.0-98.0); Monocytes Absolute Auto 0.4 X10*3/uL (0.1-1.2); Monocytes Percent Auto 5.5 % (2-11); Neutrophils Percent Auto 73.4 % (45-73); Platelet Count 199 X10*3/uL (160-400); Red Blood Count 6.78 X10*6/uL (4.60-5.80); Red Cell Distribution Width 22.9 % (11.0-16.0); White Blood Count 6.8 X10*3/uL (4.8-10.8)
[2024-06-21 10:43] LABS: Hematocrit 56.7 % (42.0-52.0)
[2024-06-21 11:04] LABS: Anion Gap 9 (12-20); Blood Urea Nitrogen 12 mg/dL (9-16); Carbon Dioxide 29 mmol/L (22-29); Chloride 105 mmol/L (96-108); Potassium 4.2 mmol/L (3.3-5.1); Sodium 139 mmol/L (135-145)
[2024-06-21 11:05] LABS: Alanine Aminotransferase 10 U/L (0-40); Albumin Level 4.2 g/dL (3.5-5.0); Alkaline Phosphatase 45 U/L (39-117); Aspartate Amino Transferase 22 U/L (5-37); Bilirubin Total 2.1 mg/dL (0.0-1.0); Calcium 9.4 mg/dL (8.4-10.2); Estimated Glomerular Filt Rate > 60; Glucose Random 110 mg/dL (60-115); Total Protein 7.3 g/dL (6.5-8.0)
== END 2024-06-21 09:22 | disposition home or self-care (01) ==
LOC: HO.WFDLDS 09:21
PROVIDERS: Visit Provider Internal Medicine
DX: D47.1 Chronic myeloproliferative disease (principal)
CPT/HCPCS: 36415; 80053; 85025

== ENCOUNTER 2024-06-26 10:02 | Outpatient (REF) | payer OTHER, SELFPAY ==
--- OUTSIDE RECORDS SUMMARY | 2024-06-26 11:07 | XMS_ITS | Clinical Summary ---
Author Organization [employer] Address [address] [facility] 7 [place] [address] Care Team Providers Care Patient Care Secretary Name Role Phone Unavailable Primary Care Provider [...] 07/09/2024 9:00 AM EDT Office Visit Nichole [facility] [address] [place] [address] Xiang Gillespie, OD [address] [place] [address] Health Maintenance Due Date Last Done Comments [...]
== END 2024-06-26 10:03 | disposition home or self-care (01) ==
LOC: HO.BBR 10:02
PROVIDERS: Visit Provider Internal Medicine
DX: D75.1 Secondary polycythemia (principal)
CPT/HCPCS: 85014; 85018; 99195

== ENCOUNTER 2024-08-26 09:00 | Outpatient (REF) | payer OTHER, SELFPAY ==
--- OUTSIDE RECORDS SUMMARY | 2024-08-26 09:16 | XMS_ITS | Clinical Summary ---
Author Organization [employer] Address [address] 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 05/02/2024 Active aspirin 81 MG chewable tablet Chew 81 mg Once per day. 05/03/2024 Active Advair Diskus 100-50 MCG/ACT aerosol powder inhale 1 puff two times a day 06/23/2024 Active hydroxyurea (Hydrea) 500 MG capsule Take 1 capsule by mouth Once per day. 05/03/2024 Active pantoprazole (ProtoNix) 40 MG EC tablet Take 1 tablet by mouth Once per day. 05/02/2024 Active albuterol 108 (90 Base) MCG/ACT inhaler Inhale 2 puffs every 6 (six) hours if needed for wheezing. Active Encounters Date Type Department Care Team Description 07/09/2024 9:00 AM EDT Office Visit [facility] [address] [place] [address] Xiang Gillespie, ISAAC Exudative age-related macular degeneration of right eye, unspecified stage (CMS/HCC) (Primary Dx); Hyperopia of both eyes with astigmatism and presbyopia from Last 3 Months Social History Tobacco Use Types Packs/Day Years Used Date Smoking Tobacco: Former Cigarettes Tobacco Cessation:Counseling Given: Not Answered Sex and Gender Information Value Date Recorded Sex Assigned at Male 07/05/2024 1:48 PM EDT Legal Sex Male 4:17 PM EDT Gender Identity Male 06/19/2024 2:54 PM EDT Sexual Orientation Straight 06/19/2024 2: 54 PM EDT Last Filed Vital Signs Vital Sign Reading Time Taken Comments Blood Pressure 124/80 07/09/2024 8:58 AM EDT Pulse - - Temperature 36.2 C (97.2 F) 07/09/2024 8:58 AM EDT Respiratory Rate - - Oxygen Saturation - - Inhaled Oxygen Concentration - - Weight - - Height - - Body Mass Index - - Plan of Treatment Health Maintenance Due Date Last Done Comments CT Colonography 1969 Colonoscopy 1969 Depression Screening 1969 FIT 1969 FOBT 1969 HIV Screening 1969 Lipid Panel 1969 SDOH Screening 1969 Sigmoidoscopy 1969 Disability Screening 1969 Alcohol/Substance Use Screening 1981 Hepatitis C Screening 10/17/1987 DTaP/Tdap/Td Vaccines (1 - Tdap) 1988 Hepatitis B Vaccines (1 of 3 - 19+ 3-dose series) 1988 Pneumococcal Vaccine: 50+ Years (1 of 1 - PCV) 10/17/2019 Zoster Vaccines (1 of 2) 10/17/2019 COVID-19 Vaccine ( - 2023-2 5 season) 2023 Influenza Vaccine (Season Ended) 2024 Tobacco Screening 07/09/2025 07/09/2024 Colorectal Cancer Screening 06/11/2027 FIT DNA/Cologuard 06/11/2027 06/10/2024, 03/16/2021 RSV Patients and Patients Aged 60 years or older (1 - [...] patient's age to complete this topic Meningococcal B Vaccine Aged Out No l onger eligible based on patient's age to complete this topic Meningococcal Vaccine Aged Out No mario errol eligible based on patient's age to complete this topic RSV under 20 months Aged Out No longe r eligible based on patient's age to complete this topic Rotavirus Vaccines Aged Out No longer eligible based on patient's age to complete this topic Procedures Procedure Name Priority Date/Time Associated Diagnosis Comments AMB REFERRAL TO OPHTHALMOLOGY Routine 07/24/2024 Exudative age-related macular degeneration of right eye, unspecified stage ([facility]) OCT, RETINA - OU - BOTH EYES Routine 07/09/2024 Exudative age-related macular degeneration of right eye, unspecified stage ([facility]) from Last 3 Months Results * Referral to Ophthalmology (07/24/2024) Xiang Gillespie OD OUTPATIENT REFERRAL ORDERABLES Final Result * (ABNORMAL) OCT, Retina - OU - Both Eyes (07/09/2024) Xiang Gillespie OD OPHTH TOMOGRAPHY Final Result from Last 3 Months Insurance [facility]
== END 2024-08-26 09:01 | disposition home or self-care (01) ==
LOC: HO.BBR 09:00
PROVIDERS: PCP Internal Medicine; Visit Provider Internal Medicine
DX: D75.1 Secondary polycythemia (principal)
CPT/HCPCS: 85018; 99195

== ENCOUNTER 2024-09-27 09:40 | Outpatient (AMB) | payer OTHER, SELFPAY ==
[2024-09-27 09:44] VITALS: BP 138/86; PULSE 84; RESP 16; TEMP 36.2; O2SAT 98; BMI 26.9
--- NOTE | 2024-09-27 09:44 | MHC.PC.OV ---
Vital Signs 09/27/24 09:44 Height 6 ft 1 in Weight 204 lb BMI 26.9 BP 138/86 Blood Pressure Location Lt brachial Position Sitting Respiration 16 Pulse 84 Pulse Source Pulse Oximeter Temp 97.1 F Temp Source Temporal Artery Scan Pulse Oximetry (%) 98 Oxygen Delivery Method Room Air Intake Visit Reasons: lower back pain & Pt back leg knee discomfort Allergies No Known Allergies (No Known Allergies*) Allergy (Verified 09/27/24 09:48) Medication List - Last Reconciled 09/27/24 by Meche Jamil MD albuterol sulfate 90 mcg/actuation 2 puffs inhalation QID PRN apixaban (Eliquis) 5 mg PO BID aspirin 1 tab PO DAILY cyclobenzaprine 10 mg PO TID PRN fluticasone propion-salmeterol 100-50 mcg/dose (Advair Diskus) 1 inh inhalation BID hydroxyurea 500 mg PO DAILY pantoprazole (Protonix) 40 mg PO DAILY Tobacco use date assessed: 09/27/24 Dental Screening Dental Screen Date: 09/27/24 Did you have a dental visit in the last 12 months?: No Did you have a dental problem in the last 6 months where you did not have access to dental care?: No Was dental information given to patient?: No [facility] Medical History (Updated 09/27/24 @ 10:00 by Meche Jamil MD) Empyema of lung Colonoscopy refused Colon cancer screening Generalized anxiety disorder Splenic vein thrombosis Thoracic spine fracture Myeloproliferative disorder Asthma Thrombocytosis Surgical History H/O shoulder surgery Social History Household Members: None Housing: House Alcohol intake: current Comment: QD 4 drinks Patient Tobacco Use Status: Former Tobacco user Tobacco use type: Cigarette Years Smoked: quit 2006 smokes pot e-Cigarette/Vaping Use: Never Used Second Hand Smoke Exposure: No Substance Use Type: Marijuana service: No Current occupational status: employed Cognitive needs: No Hearing needs: No Vision needs: No Questionnaire PHQ-9 Over the last 2 weeks, how often have you been bothered by any of the following problems? 1. Little interest or pleasure in doing things: several days 2. Feeling down, depressed, or hopeless: several days 3. Trouble falling or staying asleep, or sleeping too much: not at all 4. Feeling tired or having little energy: not at all 5. Poor appetite or overeating: not at all 6. Feeling bad about yourself - or that you are a failure or have let yourself or your family down: not at all 7. Trouble concentrating on things, such as reading the newspaper or watching television: not at all 8. Moving or speaking so slowly that other people could have noticed. Or the opposite - being so fidgety or restless that you have been moving around a lot more than usual: not at all 9. Thoughts that you would be better off or of hurting yourself in some way: not at all Total score: 2 Depression Screening Interpretation: Negative Depression Screening Done: Yes Source: Developed by Drs. Mitul Hart, Alysia Tobias, Ray Goodwin and colleagues, with an educational alaina from [employer]. Thrive Questionnaire Date Thrive assessed: 03/05/24 I am a: Patient What is your living situation today?: I have a steady place to live Within the past 12 months, did the food you bought not last and you didn't have the money to get more?: Never true Within the past 12 months, did you worry whether your food would run out before you got money to buy more?: Never true Do you have trouble paying for medicines?: No Do you have trouble getting transportation to medical appointments?: No Do you have trouble paying your heating and electricity bill?: No Do you have trouble taking care of your child, family member or friend?: No Do you have trouble with day-to-day activities such as bathing, preparing meals, shopping, managing finances, etc.?: No Are you currently unemployed and looking for a job?: No Are you interested in more education?: No Please select the resources that you would like help with: None Currently or been in a relationship where the following occur: No concerns reported THRIVE Score: 0 AUDIT C Alcohol Use Questionnaire (AUDIT-C) 1. How often do you have a drink containing alcohol?: 2-4 times a month 2. How many drinks containing alcohol do you have on a typical day when you are drinking?: 1 or 2 3. How often do you have six or more drinks on one occasion?: Never Total Score: 2 MARCOS-7 AMB Questionnaire MARCOS-7 Date MARCOS - 7 assessed: 03/05/24 Feeling nervous, anxious, or on edge: 3 = Nearly every day Not being able to stop or control worryin = Nearly every day Worrying too much about different things: 3 = Nearly every day Trouble relaxin = Not at all Being so restless that it is hard to sit still: 0 = Not at all Becoming easily annoyed or irritable: 0 = Not at all Feeling afraid as if something awful might happen: 0 = Not at all Total MARCOS-7 score (0-4 normal; 5-9 mild; 10-14 moderate; 15-21 severe): 9 Source: Developed by Drs. Mitul Hart, Alysia Tobias, Ray Goodwin and colleagues, with an educational alaina from [employer]. Physical exam (Primary Care) Vital Signs: Last Vital Signs Temp 97.1 F 09/27/24 09:44 Pulse 84 09/27/24 09:44 Resp 16 09/27/24 09:44 BP 138/86 09/27/24 09:44 Pulse Ox 98 09/27/24 09:44 Oxygen Delivery Method Room Air 09/27/24 09:44 BMI result Body Mass Index 26.9 Tobacco/Smoking Status: Tobacco use Status Tobacco use date assessed 09/27/24 09/27/24 09:49 Patient Tobacco Use Status Former Tobacco user 09/27/24 09:49 Tobacco use type Cigarette 09/27/24 09:49 e-Cigarette/Vaping Use Never Used 09/27/24 09:49 PHQ-9: PHQ-9 Score PHQ-9: Total score 2 09/27/24 18:10 Depression Screening Interpretation: Negative Thrive Assessment: Date of Thrive Assessment Date Thrive assessed 03/05/24 09/27/24 09:49 Currently or been in a relationship where the following occur: No concerns reported Const General: alert; No acute distress Eyes Conjunctivae: conjunctivae normal Resp Auscultation: clear to auscultation bilaterally Cardio Rate: regular rate Rhythm: regular rhythm GI Inspection: Yes normal to inspection Back/Spine/Pelvis Other: Patient has tenderness on the thoracic spine midline. Radiating to the right leg Walks with the cane and Extrem General: Yes normal to inspection and No edema Coding Level of Care Code Est Pt Level 4 (49180) Complex EM visit Add On G2211 Diagnoses Myeloproliferative disorder D47.1 Thoracic spine fracture S22.009A Hypertension I10 Generalized anxiety disorder F41.1 Barretts esophagus K22.70 Hiatal hernia K44.9 Assessment & Plan Assessment & Plan (1) Myeloproliferative disorder: Comment: Dr. Owens phlebotomy every 3 weeks Code(s): D47.1 - Chronic myeloproliferative disease Category: Medical Plan: Patient follows up with Hematology-Oncology and on therapeutic phlebotomy (2) Thoracic spine fracture: Comment: T8, T9 February 2018, February 2019 CT scan cervical mild cervical spondylosis foraminal stenosis T8 fracture stable Code(s): S22.009A - Unspecified fracture of unspecified thoracic vertebra, initial encounter for closed fracture Category: Medical (3) Hypertension: Code(s): I10 - Essential (primary) hypertension Category: Medical Plan: Continue to monitor (4) Generalized anxiety disorder: Comment: decline counselling 01/2021 Code(s): F41.1 - Generalized anxiety disorder Category: Medical (5) Barretts esophagus: Code(s): K22.70 - Gore's esophagus without dysplasia Category: Medical Plan: Avoid the foods that causes that usually spicy foods, tomato products, juices, coffee, soda and foods that your sensitive to. After eating do not lie down, allow 3-4 hours before in lie down. And keep the head of bed above 30 degrees to avoid the acid from going up. (6) Hiatal hernia: Code(s): K44.9 - Diaphragmatic hernia without obstruction or gangrene Category: Medical Plan History of Present Illness The patient is a 53-year-old male presenting for follow-up of multiple chronic conditions including essential thrombocythemia, polycythemia vera, and Gore's esophagus. The patient has a history of essential thrombocythemia diagnosed in 2017, which has been managed with therapeutic phlebotomy and Hydrea 500 mg daily. He also takes baby aspirin as part of his treatment regimen. In April 2016, the patient presented with splenic vein thrombosis, and an EGD revealed Gore's esophagus. He has been diagnosed with polycythemia vera with a positive JAK2 mutation, and his bone marrow biopsy showed features consistent with essential thrombocythemia. The patient has a history of hypertension and asthma, both of which are currently managed with medication. He also has generalized anxiety disorder, which is part of his chronic health conditions. In February 2024, the patient experienced abdominal pain, and a CTA revealed splenomegaly with evolving infarcts and distal esophageal thickening. He has liver cirrhosis and esophageal varices, which were noted during an EGD in March 2024. The patient has a history of thoracic spine fracture, which contributes to his chronic back pain. He reports significant pain radiating to his right leg, affecting his mobility and requiring the use of a cane. The patient has been advised to follow up with gastroenterology for his Gore's esophagus and esophageal varices. He is currently on pantoprazole for acid reflux management due to his hiatal hernia. Health Maintenance - Preventative care: Colon cancer screening with stool test (Liz) is up to date - Advised to follow up with gastroenterology for Gore's esophagus and esophageal varices Social History - Employment: Patient has not worked in two years and is experiencing financial difficulties due to unemployment and denied disability claims. - Functional status: Patient reports significant mobility issues due to back pain and uses a homemade walking stick for support. - Exercise: Patient has reduced physical activity due to pain and mobility issues. Review of Systems - Musculoskeletal: Reports significant back pain radiating to the right leg, affecting mobility. - Gastrointestinal: Reports abdominal pain, reflux, and has a history of Gore's esophagus. - Cardiovascular: Denies chest pain or palpitations. - Respiratory: Reports asthma, denies recent exacerbations. Physical Exam - Musculoskeletal: Tenderness on thoracic spine midline, radiating pain to the right leg, patient walks with a cane. Results - Labs: Hemoglobin 18.6 g/dL, Hematocrit 56.7%, Bilirubin 2.1 mg/dL, Blood sugar 110 mg/dL, Electrolytes and renal function normal. - Imaging: CTA in February 2024 showed splenomegaly with evolving infarcts and distal esophageal thickening. - Procedures: EGD in March 2024 revealed Gore's esophagus and esophageal varices. Plan The patient will continue with therapeutic phlebotomy and Hydrea 500 mg daily for management of essential thrombocythemia and polycythemia vera. He is advised to continue taking baby aspirin and Eliquis twice daily for thrombosis prevention. For Gore's esophagus and esophageal varices, the patient is advised to follow up with gastroenterology and continue pantoprazole for acid reflux management. Lifestyle modifications including dietary changes and head elevation during sleep are recommended to manage reflux symptoms. The patient is referred to pain management for chronic back pain and has been prescribed cyclobenzaprine for muscle spasms. An updated x-ray of the spine has been requested to assess the current status of the thoracic spine fracture. Patient was informed and verbally consented to the use of an ambient scribe for clinic note documentation during this visit. Discussion Notes I discussed with the patient the importance of continuing therapeutic phlebotomy and Hydrea for managing essential thrombocythemia and polycythemia vera. We reviewed the need for ongoing use of baby aspirin and Eliquis to prevent thrombosis. I emphasized the necessity of gastroenterology follow-up for Gore's esophagus and esophageal varices and the continuation of pantoprazole for reflux management. Lifestyle modifications were discussed, including dietary changes and head elevation during sleep to alleviate reflux symptoms. I referred the patient to pain management for chronic back pain and prescribed cyclobenzaprine for muscle spasms. An updated x-ray of the spine was requested to evaluate the thoracic spine fracture. Patient Instructions - Continue therapeutic phlebotomy and take Hydrea 500 mg daily as prescribed. - Take baby aspirin and Eliquis twice daily to prevent blood clots. - Follow up with gastroenterology for Gore's esophagus and esophageal varices. - Continue taking pantoprazole for acid reflux management. - Make dietary changes and elevate the head during sleep to help with reflux. - Follow up with pain management for back pain and take cyclobenzaprine as needed for muscle spasms. - Schedule an x-ray to assess the thoracic spine fracture. Orders: Orders Thyroid Stimulating Hormone 3 Months D47.1 - Chronic myeloproliferative disease Complete Blood Count Auto Diff 3 Months D47.1 - Chronic myeloproliferative disease Comprehensive Met. Panel 3 Months D47.1 - Chronic myeloproliferative disease Free T4 (Free Thyroxine) 3 Months D47.1 - Chronic myeloproliferative disease XR thoracic spine 2V Today S22.009A - Unspecified fracture of unspecified thoracic vertebra, initial encounter for closed fracture Referrals Pain Management Referral S22.009A - Unspecified fracture of unspecified thoracic vertebra, initial encounter for closed fracture Medications: New cyclobenzaprine 10 mg PO TID PRN 60 tabs 2RF muscle spasm S22.009A - Unspecified fracture of unspecified thoracic vertebra, initial encounter for closed fracture Refilled albuterol sulfate 90 mcg/actuation 2 puffs inhalation QID PRN 8.5 grams 0RF shortness of breath or wheezing J45.909 - Unspecified asthma, uncomplicated
--- OUTSIDE RECORDS SUMMARY | 2024-09-27 09:50 | XMS_ITS | Clinical Summary ---
Author Organization [facility] Address [address] [facility] 7 [place] [address] Care Team Providers Care Violin Tutor Name Role Phone Unavailable Primary Care Provider [...] Description 07/09/2024 9:00 AM EDT Office Visit [place] [facility] [address] [place] [address] Xiang Gillespie, ISAAC Exudative age-related macular degeneration [...] Colonoscopy 1969 Depression Screening 1969 FIT 1969 HIV Screening 1969 Lipid Panel 1969 SDOH Screening 1969 Sigmoidoscopy 1969 Disability Screening 1969 Alcohol/Substance Use Screening 1981 Hepatitis C Screening 10/17/1987 DTaP/Tdap/Td Vaccines (1 - Tdap) 1988 Hepatitis B Vaccines (1 of 3 - 19+ 3-dose series) 1988 Pneumococcal Vaccine: 50+ Years (1 of 1 - PCV) 10/17/2019 Zoster Vaccines (1 of 2) 10/17/2019 COVID-19 Vaccine (1 - 2023-2 5 season) 2023 Influenza Vaccine (#1) 2024 FOBT 06/10/2025 06/10/2024, 03/16/2021 Tobacco Screening 07/09/2025 07/09/2024 Colorectal Cancer Screening [...] macular degeneration of right eye, unspecified stage ([facility]) OCT, RETINA - OU - BOTH EYES Routine 07/09/2024 Exudative age-related macular degeneration of right eye, unspecified stage ([facility]) from Last 3 Months Results * Referral to Ophthalmology (07/24/2024) Xiang Gillespie OD OUTPATIENT REFERRAL ORDERABLES Final Result * (ABNORMAL) OCT, Retina - OU - Both Eyes (07/09/2024) Xaing Gillespie OD OPHTH TOMOGRAPHY Final Result from Last 3 Months Insurance [facility]
== END 2024-09-27 10:19 | disposition home or self-care (01) ==
LOC: HO.HMCH 09:41
PROVIDERS: PCP Internal Medicine; Visit Provider Internal Medicine
DX: D47.1 Chronic myeloproliferative disease (principal); S22.009A Unspecified fracture of unspecified thoracic vertebra, initial encounter for closed fracture; I10 Essential (primary) hypertension; F41.1 Generalized anxiety disorder; K22.70 Barrett's esophagus without dysplasia; K44.9 Diaphragmatic hernia without obstruction or gangrene

== ENCOUNTER → 2024-09-27 09:40 | Outpatient (BNVA) | payer OTHER, SELFPAY | PROVIDERS: PCP Internal Medicine; Visit Provider Internal Medicine | DX: D47.1 Chronic myeloproliferative disease (principal); S22.069D Unspecified fracture of T7-T8 vertebra, subsequent encounter for fracture with routine healing; S22.079D Unspecified fracture of T9-T10 vertebra, subsequent encounter for fracture with routine healing; X58.XXXD Exposure to other specified factors, subsequent encounter; I10 Essential (primary) hypertension; F41.1 Generalized anxiety disorder; K22.70 Barrett's esophagus without dysplasia; K44.9 Diaphragmatic hernia without obstruction or gangrene; Z13.31 Encounter for screening for depression | CPT/HCPCS: 99212 ==

== ENCOUNTER 2024-10-11 10:06 | Outpatient (AMB) | payer OTHER, SELFPAY ==
--- OUTSIDE RECORDS SUMMARY | 2024-10-11 10:17 | XMS_ITS | Clinical Summary ---
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 Active Social History Tobacco Use Types Packs/Day Years [...] 5 season) 2023 Influenza Vaccine (#1) 2024 Tobacco Screening 07/09/2025 07/09/2024 Colorectal Cancer [...] degeneration of right eye, unspecified stage (CMS/HCC) from Last 3 Months Results * Referral to Ophthalmology (07/24/2024) Xiang Gillespie ISAAC OUTPATIENT REFERRAL ORDERABLES Final Result from Last 3 Months Insurance [facility]
--- NOTE | 2024-10-11 10:28 | MHC.OFFVIS ---
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: No Allergies No Known Allergies (No Known Allergies*) Allergy (Verified 10/21/24 09:50) Medication List - Last Reconciled 10/11/24 by Chinyere Bhakta LPN albuterol sulfate 90 mcg/actuation (Ventolin HFA) 2 puffs inhalation QID PRN apixaban (Eliquis) 5 mg PO BID aspirin 1 tab PO DAILY cyclobenzaprine 10 mg PO TID PRN fluticasone propion-salmeterol 100-50 mcg/dose (Advair Diskus) 1 inh inhalation BID hydroxyurea 500 mg PO DAILY pantoprazole (Protonix) 40 mg PO DAILY HPI HPI Unspecified fracture of thoracic vertebra: Details: History of Present Illness The patient is a 53-year-old male presenting with total body pain and polyarthralgia. He reports that his pain is a result of previous jobs requiring heavy lifting, which has led to an inability to sleep normally or perform daily activities. The pain is exacerbated by weather changes and movement, with an average intensity of 9 out of 10. The patient has a history of cervical disc herniation and degeneration, which he was unaware of until recently. He experiences headaches that radiate into his head, causing significant discomfort and tears. 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 He is under regular hematological care, including phlebotomy and medication with hydroxyurea and Eliquis. Additionally, the patient suffers from depression and anxiety, exacerbated by his current financial and social situation, including unemployment and the recent loss of his dog. He has been unable to work for two years due to his medical conditions and is currently seeking disability support. Pain Description - Onset and Timing: Pain is chronic, related to previous heavy lifting jobs. - Quality and Character: Described as severe, with an intensity of 9/10. - Primary Location: Total body pain with specific mention of cervical region. - Exacerbating Factors: Weather changes and movement worsen the pain. - Interference: Pain interferes with sleep and daily activities. Physical Exam - Appears afebrile. - Alert and oriented. - Mood and affect appropriate. - Follows and participates in conversation appropriately. - Respiratory effort is unlabored. - Able to transition from sit to stand unassisted. - Ambulates with bilaterally normal heel strike and toe off. Pain Management - Affect: Pain significantly impacts mood, contributing to depression and anxiety. - Analgesia: Current pain level is 9/10; patient is on hydroxyurea and Eliquis for related conditions. - Activities of Daily Living: Pain limits ability to perform daily activities and work. - Aberrant Drug Related Behaviors: No aberrant behaviors reported. [facility] Medical History (Updated 10/21/24 @ 10:58 by Fritz Carreno MD) Empyema of lung Colonoscopy refused Colon cancer screening Generalized anxiety disorder Splenic vein thrombosis Thoracic spine fracture Myeloproliferative disorder Asthma Thrombocytosis Surgical History H/O shoulder surgery Social History Household Members: None Housing: House Alcohol intake: current Comment: QD 4 drinks Patient Tobacco Use Status: Former Tobacco user Tobacco use type: Cigarette Years Smoked: quit 2006 smokes pot e-Cigarette/Vaping Use: Never Used Second Hand Smoke Exposure: No Substance Use Type: Marijuana service: No Current occupational status: employed Cognitive needs: No Hearing needs: No Vision needs: No Physical Exam Vital Signs: Last Vital Signs Pulse 82 10/11/24 10:29 BP 128/82 10/11/24 10:29 Pulse Ox 97 10/11/24 10:29 Oxygen Delivery Method Room Air 10/11/24 10:29 BMI result Body Mass Index 24.4 Assessment & Plan Assessment & Plan (1) Thoracic spine fracture: Comment: T8, T9 February 2018, February 2019 CT scan cervical mild cervical spondylosis foraminal stenosis T8 fracture stable Code(s): S22.009A - Unspecified fracture of unspecified thoracic vertebra, initial encounter for closed fracture Category: Medical (2) Degeneration of cervical disc without myelopathy: Code(s): M50.30 - Other cervical disc degeneration, unspecified cervical region Category: Medical Plan Plan - Plan to review patient's imaging records, including MRIs and x-rays, during the next visit. - Consideration of initiating treatment with possible PRATEEK for cervical disc herniation related radiculopathy based on imaging findings. - Continue current hematological management with hydroxyurea and Eliquis. - Address psychological health by acknowledging depression and anxiety, and consider referral to mental health services. Patient was informed and verbally consented to the use of an ambient scribe for clinic note documentation during this visit. Discussion Notes I discussed with the patient the importance of bringing his imaging records, including MRIs and x-rays, for the next appointment to better assess his cervical disc herniation and overall condition. We talked about the potential for starting treatment for his neck pain once the imaging is reviewed. I also acknowledged his psychological distress and suggested considering mental health support. Patient Instructions - Bring all imaging records, including MRIs and x-rays, to the next appointment. - Continue current medications as prescribed. - Consider seeking mental health support for depression and anxiety. Coding Level of Care Code New Pt Level 4 (33652) Diagnoses Thoracic spine fracture S22.009A Degeneration of cervical disc without myelopathy M50.30
[2024-10-11 10:29] VITALS: BP 128/82; PULSE 82; O2SAT 97; BMI 24.4
== END 2024-10-11 10:52 | disposition home or self-care (01) ==
LOC: HO.PMC 10:06
PROVIDERS: PCP Internal Medicine; Visit Provider Internal Medicine
DX: M50.30 Other cervical disc degeneration, unspecified cervical region (principal); R52 Pain, unspecified
CPT/HCPCS: 99204

== ENCOUNTER → 2024-10-11 10:06 | Outpatient (BNVA) | payer OTHER, SELFPAY | PROVIDERS: PCP Internal Medicine; Visit Provider Internal Medicine | DX: M50.30 Other cervical disc degeneration, unspecified cervical region (principal); S22.009A Unspecified fracture of unspecified thoracic vertebra, initial encounter for closed fracture | CPT/HCPCS: 99202 ==

== ENCOUNTER 2024-10-21 09:39 | Outpatient (AMB) | payer OTHER, SELFPAY ==
--- NOTE | 2024-10-21 09:48 | MHC.OFFVIS ---
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 The patient reports a history of thoracic spine fractures, which occurred many years ago, leading to persistent pain and discomfort. The fractures have resulted in significant pain that radiates from the shoulders to the lower back, causing numbness in the arms and hands. The patient also has degenerative disc disease, which has been confirmed by imaging studies, although the most recent MRI is nine years old. The degenerative changes are associated with arthritis, which has been noted to involve the nerves, contributing to the patient's pain. The patient describes the pain as severe, with a grinding sensation in the neck and a feeling of compression in the back, often likened to being crushed. The pain is exacerbated by movement and has significantly impacted the patient's quality of life, limiting daily activities and causing distress. Previous interventions have included physical therapy, which was deemed ineffective due to the severity of the spinal damage and arthritis. The patient has been on various medications, including muscle relaxers, but is cautious about overuse due to potential side effects. Pain Description - Onset: Pain has been present for many years due to thoracic spine fractures. - Quality: Described as severe with grinding sensation in the neck and compression in the back. - Location: Pain radiates from shoulders to lower back, causing numbness in arms and hands. - Exacerbating factors: Movement worsens the pain. - Impact: Limits daily activities and causes significant distress. Physical Exam - Appears afebrile. - Alert and oriented. - Mood and affect frustrated. - Follows and participates in conversation appropriately. - Respiratory effort is unlabored. Results - Imaging: Previous MRI from nine years ago showing degenerative disc disease. Pain Management - Affect: Pain causes significant distress and impacts psychological wellbeing. - Analgesia: Patient uses muscle relaxers cautiously due to potential side effects. - Activities of Daily Living: Pain limits daily activities significantly. - Aberrant Drug Related Behaviors: No evidence of medication misuse reported. [facility], [facility] Medical History (Updated 10/21/24 @ 10:58 by Fritz Carreno MD) Empyema of lung Colonoscopy refused Colon cancer screening Generalized anxiety disorder Splenic vein thrombosis Thoracic spine fracture Myeloproliferative disorder Asthma Thrombocytosis Surgical History H/O shoulder surgery Social History Household Members: None Housing: House Alcohol intake: current Comment: QD 4 drinks Patient Tobacco Use Status: Former Tobacco user Tobacco use type: Cigarette Years Smoked: quit 2005 smokes pot e-Cigarette/Vaping Use: Never Used Second Hand Smoke Exposure: No Substance Use Type: Marijuana service: No Current occupational status: employed Cognitive needs: No Hearing needs: No Vision needs: No Physical Exam Vital Signs: Last Vital Signs Pulse 88 10/21/24 09:49 BP 143/86 H 10/21/24 09:49 Pulse Ox 97 10/21/24 09:49 Oxygen Delivery Method Room Air 10/21/24 09:49 BMI result Body Mass Index 24.4 Assessment & Plan Assessment & Plan (1) Degeneration of cervical disc without myelopathy: Code(s): M50.30 - Other cervical disc degeneration, unspecified cervical region Category: Medical Plan Plan - Order a new MRI to assess current status of degenerative cervical disc disease. Last MRI done in 2016. - Consider cervical epidural steroid injection for neck and upper back pain management. - Follow-up after MRI to discuss results and further management options. Patient was informed and verbally consented to the use of an ambient scribe for clinic note documentation during this visit. Discussion Notes I discussed with the patient the need for a new MRI to better understand the current state of his degenerative disc disease and thoracic spine fractures, given that the last imaging was nine years old. We also talked about the potential benefits of a cervical epidural steroid injection to manage his neck and upper back pain. I explained that the MRI results would guide further treatment decisions, and we agreed to follow up after the imaging is completed. Patient Instructions - Schedule and complete the MRI as soon as possible. - Follow up with the clinic after the MRI to discuss results and next steps. - Consider the option of a cervical epidural steroid injection for pain management. Orders: Orders MR cervical spine wo con 10/21/24 M50.30 - Other cervical disc degeneration, unspecified cervical region Coding Level of Care Code Est Pt Level 3 (25229) Diagnoses Degeneration of cervical disc without myelopathy M50.30
[2024-10-21 09:49] VITALS: BP 143/86; PULSE 88; O2SAT 97; BMI 24.4
--- OUTSIDE RECORDS SUMMARY | 2024-10-21 10:29 | XMS_ITS | Clinical Summary ---
Author Organization [employer] Address [address] [place] [address] Care Team Providers Care Forms Analysis Manager Name Role Phone Unavailable Primary Care Provider [...] Final Result from Last 3 Months Insurance [facility] ([facility]
== END 2024-10-21 11:01 | disposition home or self-care (01) ==
LOC: HO.PMC 09:40
PROVIDERS: PCP Internal Medicine; Visit Provider Internal Medicine
DX: M50.30 Other cervical disc degeneration, unspecified cervical region (principal)
CPT/HCPCS: 99213

== ENCOUNTER → 2024-10-21 09:39 | Outpatient (BNVA) | payer OTHER, SELFPAY | PROVIDERS: PCP Internal Medicine; Visit Provider Internal Medicine | DX: M50.33 Other cervical disc degeneration, cervicothoracic region (principal) | CPT/HCPCS: 99212 ==

== ENCOUNTER 2024-10-24 08:55 | Outpatient (REF) | payer OTHER, SELFPAY ==
--- OUTSIDE RECORDS SUMMARY | 2024-10-24 09:45 | XMS_ITS | Clinical Summary ---
Author Organization [employer] Address [address] [place] [address] Care Team Providers Care Oil Producer Name Role Phone Unavailable Primary Care Provider [...] Final Result from Last 3 Months Insurance [facility] ([facility])
== END 2024-10-24 08:56 | disposition home or self-care (01) ==
LOC: HO.BBR 08:55
PROVIDERS: PCP Internal Medicine; Visit Provider Internal Medicine
DX: D75.1 Secondary polycythemia (principal)
CPT/HCPCS: 85014; 85018; 99195

== ENCOUNTER 2024-10-31 08:53 | Outpatient (REF) | payer OTHER, SELFPAY ==
--- NOTE | ~2024-10-31 | XR_ITS ---
EXAMINATION: XR CHEST CLINICAL INFORMATION: M25.512 - Pain in left shoulder COMPARISON: 03/01/2019. TECHNIQUE: 2 views of the chest were obtained. FINDINGS: Cardiac size is normal. There is prominence of the aortic root noted. The hilar contours are normal. Lungs are diffusely hyperaerated with flattened hemidiaphragms, suggestive of COPD. Lungs are otherwise clear. There is no pneumothorax or pleural effusion. There is no focal osseous or soft tissue abnormality. There are degenerative changes in the spine. XR/XR chest 2V IMPRESSION: 1. COPD. No active superimposed disease. 2. Prominence of the aortic root, cannot exclude ascending aortic aneurysm. Electronically signed by: Chava Short MD 10/31/2024 09:23 AM EDT
--- OUTSIDE RECORDS SUMMARY | 2024-10-31 09:24 | XMS_ITS | Clinical Summary ---
Author Organization [employer] Address [address] [place] [address] Care Team Providers Care Laminating Press Operator Name Role Phone Unavailable Primary Care Provider [...] COVID-19 Vaccine (1 - 2023-2 5 season) 2024 Influenza Vaccine (#1) 2024 Tobacco Screening 07/09/2025 [...] on patient's age to complete this topic Insurance [employer] [facility] ([facility])
== END 2024-10-31 08:54 | disposition home or self-care (01) ==
LOC: HO.XRAY 08:53
PROVIDERS: PCP Internal Medicine; Visit Provider Internal Medicine
DX: M25.512 Pain in left shoulder (principal)
CPT/HCPCS: 71046

== ENCOUNTER → 2024-10-31 08:58 | Outpatient (BNV) | payer OTHER, SELFPAY | PROVIDERS: PCP Internal Medicine; Visit Provider Radiology Diagnostic Radiology | DX: M25.512 Pain in left shoulder (principal); J44.9 Chronic obstructive pulmonary disease, unspecified | CPT/HCPCS: 71046 ==

== ENCOUNTER → 2024-11-01 07:25 | Outpatient (BNV) | payer OTHER, SELFPAY | PROVIDERS: PCP Internal Medicine; Visit Provider Radiology Diagnostic Radiology | DX: M50.30 Other cervical disc degeneration, unspecified cervical region (principal); M47.812 Spondylosis without myelopathy or radiculopathy, cervical region | CPT/HCPCS: 72141 ==

== ENCOUNTER 2024-11-01 07:28 | Outpatient (REF) | payer OTHER, SELFPAY ==
--- NOTE | ~2024-11-01 | MR_ITS ---
EXAMINATION: MR CERVICAL SPINE WITHOUT CONTRAST CLINICAL INFORMATION: Numbness, weakness and pain both upper extremities. COMPARISON: Correlated to CT cervical spine dated March 06, 2019. TECHNIQUE: MRI of the cervical spine was obtained using routine sequences without contrast. FINDINGS: Craniocervical junction is intact. Normal position of the cerebellar tonsils. No bone marrow STIR signal abnormality. Grade 1 anterolisthesis C2-3 and likely C3-4. Marginal osteophyte formation and decreased intervertebral disc height and signal at C5-6 and to a lesser extent C6-7, C3-4 and C4-5 levels. Modic type II endplate changes at C5-6. Cervical spinal cord signal and caliber are normal. C2-3: No central spinal canal or neuroforamina stenosis. C3-4: Broad-based disc osteophyte compresses formation. No cord compression. No neuroforamina stenosis. C4-5: Broad-based disc osteophyte compresses formation. No cord compression. No neuroforamina stenosis. C5-6: Broad-based disc osteophyte complex formation resulting in ventral deformity of the thecal sac. No cord compression. Left neuroforamina narrowing on a degenerative basis. 6. 7: Broad-based disc osteophyte complex formation resulting in ventral deformity of the thecal sac. No cord compression. Right neuroforamina narrowing on a degenerative basis C7-T1: No cord compression. No neuroforamina stenosis. T1-2: No herniated disc. No cord compression. No prevertebral compartment hematoma, mass or fluid collection. Flow-void signal within the main vessels is normal. Left vertebral artery is dominant. Nonspecific mildly prominent cervical lymph nodes. MR/MR cervical spine wo con IMPRESSION: Multilevel cervical spondylosis resulting in grade 1 anterolisthesis C2-3 and likely C3-4 and left neuroforamina narrowing C5-6 and to a lesser extent right neuroforamina narrowing C6-7. No cord compression, cord edema and or myelopathy. Electronically signed by: Peter Trinh MD 11/01/2024 08:34 AM EDT
--- OUTSIDE RECORDS SUMMARY | 2024-11-01 07:30 | XMS_ITS | Clinical Summary ---
Author Organization [employer] Address [address] [place] [address] Care Team Providers Care Chief Meteorologist Name Role Phone Unavailable Primary Care Provider [...] 5 season) 2024 Influenza Vaccine (#1) 2024 FOBT 06/10/2025 06/10/2024, [...] patient's age to complete this topic Insurance [employer] [facility] (O)
== END 2024-11-01 07:29 | disposition home or self-care (01) ==
LOC: HO.MRI 07:28
PROVIDERS: PCP Internal Medicine; Visit Provider Internal Medicine
DX: M50.30 Other cervical disc degeneration, unspecified cervical region (principal)
CPT/HCPCS: 72141

== ENCOUNTER 2024-11-15 10:53 | Outpatient (AMB) | payer OTHER, SELFPAY ==
[2024-11-15 10:58] VITALS: BP 122/68; PULSE 72; O2SAT 98; BMI 26.9
--- NOTE | 2024-11-15 10:58 | MHC.PC.OV ---
Vital Signs 11/15/24 10:58 Height 6 ft 1 in Weight 204 lb BMI 26.9 BP 122/68 Blood Pressure Location Lt brachial Position Sitting Pulse 72 Pulse Source Pulse Oximeter Pulse Oximetry (%) 98 Oxygen Delivery Method Room Air Intake Visit Reasons: ANNUAL Allergies No Known Allergies (No Known Allergies*) Allergy (Verified 11/15/24 10:58) Medication List - Last Reconciled 11/15/24 by Meche Jamil MD albuterol sulfate 90 mcg/actuation (Ventolin HFA) 2 puffs inhalation QID PRN apixaban (Eliquis) 5 mg PO BID aspirin 1 tab PO DAILY cyclobenzaprine 10 mg PO TID PRN fluticasone propion-salmeterol 100-50 mcg/dose (Advair Diskus) 1 inh inhalation BID hydroxyurea 500 mg PO DAILY pantoprazole (Protonix) 40 mg PO DAILY Tobacco use date assessed: 09/27/24 Dental Screening Dental Screen Date: 09/27/24 [facility] Medical History (Updated 11/15/24 @ 11:47 by Meche Jamil MD) Empyema of lung Colonoscopy refused Colon cancer screening Generalized anxiety disorder Splenic vein thrombosis Thoracic spine fracture Myeloproliferative disorder Asthma Thrombocytosis Surgical History H/O shoulder surgery Social History Household Members: None Housing: House Alcohol intake: current Comment: QD 4 drinks Patient Tobacco Use Status: Former Tobacco user Tobacco use type: Cigarette Years Smoked: quit 2006 smokes pot e-Cigarette/Vaping Use: Never Used Second Hand Smoke Exposure: No Substance Use Type: Marijuana service: No Current occupational status: employed Cognitive needs: No Hearing needs: No Vision needs: No Questionnaire PHQ-9 Over the last 2 weeks, how often have you been bothered by any of the following problems? 1. Little interest or pleasure in doing things: several days 2. Feeling down, depressed, or hopeless: several days 3. Trouble falling or staying asleep, or sleeping too much: not at all 4. Feeling tired or having little energy: not at all 5. Poor appetite or overeating: not at all 6. Feeling bad about yourself - or that you are a failure or have let yourself or your family down: not at all 7. Trouble concentrating on things, such as reading the newspaper or watching television: not at all 8. Moving or speaking so slowly that other people could have noticed. Or the opposite - being so fidgety or restless that you have been moving around a lot more than usual: not at all 9. Thoughts that you would be better off or of hurting yourself in some way: not at all Total score: 2 Depression Screening Interpretation: Positive Depression Screening Done: Yes Source: Developed by Drs. Mitul Hart, Alysia Tobias, Ray Goodwin and colleagues, with an educational alaina from [employer]. Thrive Questionnaire Date Thrive assessed: 03/05/24 AUDIT C Alcohol Use Questionnaire (AUDIT-C) 1. How often do you have a drink containing alcohol?: 2-4 times a month 2. How many drinks containing alcohol do you have on a typical day when you are drinking?: 1 or 2 3. How often do you have six or more drinks on one occasion?: Never Total Score: 2 MARCOS-7 AMB Questionnaire MARCOS-7 Date MARCOS - 7 assessed: 03/05/24 Source: Developed by Drs. Mitul Hart, Alysia Tobias, Ray Goodwin and colleagues, with an educational alaina from [employer]. Review of Systems Const Denies poor appetite and Denies weakness Eyes Denies no additional complaints ENT Reports Normal hearing present, Denies dizziness, Denies nasal congestion, Denies tinnitus and Denies sore throat Card Denies chest pain, Denies syncope, Denies rapid heart rate and Denies dyspnea Resp Denies cough and Denies dyspnea GI Denies change in stool character, Reports constipation, Denies diarrhea, Denies nausea and Denies vomiting Denies dysuria and Denies urinary frequency Neuro Reports Normal hearing present, Denies confusion, Denies dizziness, Denies syncope and Denies weakness Psych Denies confusion Physical exam (Primary Care) Vital Signs: Last Vital Signs Pulse 72 11/15/24 10:58 BP 122/68 11/15/24 10:58 Pulse Ox 98 11/15/24 10:58 Oxygen Delivery Method Room Air 11/15/24 10:58 BMI result Body Mass Index 26.9 Tobacco/Smoking Status: Tobacco use Status Tobacco use date assessed 09/27/24 11/15/24 11:02 Patient Tobacco Use Status Former Tobacco user 11/15/24 11:02 Tobacco use type Cigarette 11/15/24 11:02 e-Cigarette/Vaping Use Never Used 11/15/24 11:02 PHQ-9: PHQ-9 Score PHQ-9: Total score 2 11/15/24 11:32 Depression Screening Interpretation: Positive Thrive Assessment: Date of Thrive Assessment Date Thrive assessed 03/05/24 11/15/24 11:02 Const General: No confusion Orientation/consciousness: No confusion HENMT Head: Yes normocephalic Ears: external ears normal and TM's normal bilaterally Face and sinus: Yes normal facial exam Mouth: moist mucous membranes Throat: Yes tonsils normal Eyes Conjunctivae: conjunctivae normal Pupils: Equal, round and reactive pupils present and Pupil accommodation reflex normal Direct Ophthalmoscopy: normal light reflex Neck Neck: No lymphadenopathy Thyroid: Thyroid normal Chest Chest palpation & inspection: normal inspection of the chest Resp Effort & Inspection: normal respiratory effort and no audible wheezes Auscultation: clear to auscultation bilaterally, no crackles, no wheezes and lung sounds not diminished Cardio Rate: regular rate Rhythm: regular rhythm Peripheral pulses: radial pulses present and dorsalis pedis present GI Palpation (GI): no masses Auscultation: normal bowel sounds and normoactive bowel sounds Rectal Exam - Male: Yes deferred Skin General skin exam: no rashes or lesions noted Rashes: no rashes Neuro General: No confusion Cranial nerves: Yes Equal, round and reactive pupils present and Yes Normal hearing present Cognition (Neuro): normal cognition Gait exam (Neuro): Normal gait present Motor exam (neuro): 5/5 motor strength present throughout Deep tendon reflexes (DTR's): Right brachioradialis reflex intensity grade: 2+, Left brachioradialis reflex intensity grade: 2+, Right patellar reflex intensity grade: 2+ and Left patellar reflex intensity grade: 2+ Extrem General: No edema Coding Level of Care Code Est Pt Prev Care 40-64y(93994) Diagnoses Annual physical exam Z00.00 Asthma J45.909 Thoracic spine fracture S22.009A Myeloproliferative disorder D47.1 Barretts esophagus K22.70 Generalized anxiety disorder F41.1 Alcohol abuse F10.10 Tobacco abuse Z72.0 Assessment & Plan Assessment & Plan (1) Annual physical exam: Code(s): Z00.00 - Encounter for general adult medical examination without abnormal findings Category: Medical Plan: Patient is advised to eat healthy, keep well hydrated, keep active and have adequate sleep. (2) Asthma: Code(s): J45.909 - Unspecified asthma, uncomplicated Category: Medical Plan: Patient on albuterol inhaler and Advair (3) Thoracic spine fracture: Comment: T8, T9 February 2018, February 2019 CT scan cervical mild cervical spondylosis foraminal stenosis T8 fracture stable Code(s): S22.009A - Unspecified fracture of unspecified thoracic vertebra, initial encounter for closed fracture Category: Medical Plan: Patient is being followed up by pain management presently (4) Myeloproliferative disorder: Comment: Dr. Owens phlebotomy every 3 weeks Code(s): D47.1 - Chronic myeloproliferative disease Category: Medical Plan: Continue to follow-up with Hematology-Oncology, on hydroxyurea (5) Barretts esophagus: Code(s): K22.70 - Gore's esophagus without dysplasia Category: Medical Plan: Avoid the foods that causes that usually spicy foods, tomato products, juices, coffee, soda and foods that your sensitive to. After eating do not lie down, allow 3-4 hours before in lie down. And keep the head of bed above 30 degrees to avoid the acid from going up. (6) Generalized anxiety disorder: Comment: decline counselling 01/2021 Code(s): F41.1 - Generalized anxiety disorder Category: Medical (7) Alcohol abuse: Code(s): F10.10 - Alcohol abuse, uncomplicated Category: Social Hx (8) Tobacco abuse: Code(s): Z72.0 - Tobacco use Category: Medical Plan History of Present Illness The patient is a 54-year-old male presenting for a physical examination and management of chronic conditions. The patient has a history of asthma, managed with an albuterol inhaler and Advair, which he uses infrequently, primarily on hot days when working outside. He reports no recent exacerbations and denies any allergies to medications. The patient has a myeloproliferative disorder and is under the care of hematology/oncology, currently on hydroxyurea therapy. He undergoes regular phlebotomy and has a history of polycythemia with elevated hemoglobin and hematocrit levels noted in May. The patient has generalized anxiety disorder, which he manages with occasional cannabis use, reporting it helps with his anxiety. He has a history of a thoracic spine fracture from 2018 and cervical spondylosis with multilevel involvement, including anterolisthesis at C2-3 and neural foraminal narrowing at C5-C6. He is followed by pain management and has had multiple imaging studies, including a cervical MRI in October showing these findings. The patient has hypertension, which is currently well-controlled, and he denies any recent changes in medication or symptoms. He has Gore's esophagus and is on pantoprazole for gastroesophageal reflux disease, reporting good control of symptoms. The patient was evaluated in the emergency room in September for left shoulder pain after lifting a mattress and feeling a pop, suspecting a dislocation. X-rays were negative, and he reports no ongoing issues with the shoulder. A recent chest X-ray incidentally noted COPD and a prominent aortic root, raising suspicion for an ascending aortic aneurysm. The patient is aware of the need for further evaluation of the aortic root. He has a history of splenic vein thrombosis and is on anticoagulation therapy with Eliquis. He denies any known bleeding history and is unsure of the initial reason for anticoagulation. Health Maintenance - Preventative care: Colon cancer screening with Cologuard test in May 2024 - Vaccination: Shingles vaccine received recently - Discussion on RSV and COVID vaccinations Social History - Substance use: Occasional cannabis use for anxiety management, denies cigarette smoking - Alcohol consumption: Consumes three to four beers daily, acknowledges reduction from previous intake Review of Systems - Respiratory: Reports dyspnea on exertion, denies cough or wheezing - Cardiovascular: Reports chest pain, denies orthopnea or syncope - Gastrointestinal: Denies heartburn with pantoprazole use, reports regular bowel movements - Neurological: Reports dizziness on a few occasions, denies headaches or balance issues - Musculoskeletal: Reports left shoulder pain after lifting, denies ongoing issues - General: Denies fever, reports cold chills Physical Exam General: Cooperative, healthy appearing, comfortable, no acute distress and well developed Orientation: Patient oriented x3 Limitations: No limitations Head: Normal to inspection Ears: Hearing grossly normal bilaterally Nose: Normal external nose present Face and sinus: Normal facial exam Eyes: Appearance normal, both eyes and all related structures Neck: Normal visual inspection and Yes full ROM Respiratory: Normal respiratory effort and able to speak in complete sentences. Clear to auscultation bilaterally. COPD noted on chest x-ray Cardiovascular: Regular rate and rhythm. Normal S1 and S2. Prominence of the aortic root noted, cannot exclude ascending aortic aneurysm GI: Normal to inspection. Soft to palpation and nontender Skin: No rashes or lesions noted Neuro: Patient oriented x3 Extremities: Normal to inspection. Left shoulder pain noted, x-rays negative for dislocation or tears. Results - Imaging: Cervical MRI showing multilevel cervical spondylosis with grade 1 anterolisthesis at C2-3, left neural foraminal narrowing at C5-C6 - Imaging: Chest X-ray indicating COPD and prominence of the aortic root, cannot exclude ascending aortic aneurysm - Labs: Blood work in May showing polycythemia with hemoglobin 18.6 and hematocrit 56.7, normal platelet count - Labs: Elevated blood sugar noted in May, normal renal and liver function Plan Patient was informed and verbally consented to the use of an ambient scribe for clinic note documentation during this visit. 1. Asthma The patient will continue using albuterol and Advair as needed, primarily during hot days when symptoms are exacerbated by outdoor activities. No recent exacerbations reported, and medication adherence is confirmed. 2. Myeloproliferative Disorder The patient is under hematology/oncology care and continues on hydroxyurea therapy with regular phlebotomy sessions. Blood work in May showed polycythemia, and monitoring will continue. 3. Generalized Anxiety Disorder The patient manages anxiety with occasional cannabis use, which he reports as effective. 4. Thoracic Spine Fracture The patient has a history of thoracic spine fracture from 2019, with ongoing management by pain specialists. 5. Hypertension Hypertension is well-controlled with current medication regimen, and no changes are necessary at this time. 6. Gore's Esophagus The patient is on pantoprazole for gastroesophageal reflux disease, with good symptom control reported. 7. Cervical Spondylosis With Anterolisthesis The patient is followed by pain management, with a recent MRI showing multilevel cervical spondylosis and anterolisthesis at C2-3. Continued monitoring and management by pain specialists are planned. 8. Chronic Obstructive Pulmonary Disease (Copd) COPD was incidentally noted on a chest X-ray, and the patient is aware of the need for further evaluation. 9. Ascending Aortic Aneurysm (Suspected) A prominent aortic root was noted on chest X-ray, and further evaluation is planned to assess for an ascending aortic aneurysm. 10. Polycythemia Polycythemia was noted in May's blood work, and the patient continues regular monitoring and management under hematology care. 11. Splenic Vein Thrombosis The patient is on anticoagulation therapy with Eliquis, with no known bleeding history reported. Discussion Notes During the visit, we discussed the management of the patient's chronic conditions, including asthma, myeloproliferative disorder, and hypertension. We reviewed the recent imaging findings, particularly the cervical MRI and chest X-ray, and the need for further evaluation of the aortic root prominence. The patient was advised to continue current medications and follow up with specialists as needed. Patient Instructions - Continue using albuterol and Advair as needed for asthma management. - Follow up with hematology/oncology for myeloproliferative disorder management. - Monitor blood pressure regularly and maintain current hypertension medication regimen. - Schedule further evaluation for the aortic root prominence as advised. - Continue regular phlebotomy sessions as scheduled. Orders: Orders Comprehensive Met. Panel 3 Months I10 - Essential (primary) hypertension CA echo transthoracic complete Today I10 - Essential (primary) hypertension Complete Blood Count Auto Diff 3 Months I10 - Essential (primary) hypertension Free T4 (Free Thyroxine) 3 Months I10 - Essential (primary) hypertension Thyroid Stimulating Hormone 3 Months I10 - Essential (primary) hypertension Lipid Panel 3 Months E78.00 - Pure hypercholesterolemia, unspecified, I10 - Essential (primary) hypertension Vitamin B12 and Folate 3 Months I10 - Essential (primary) hypertension Hemoglobin A1c 3 Months I10 - Essential (primary) hypertension Prostate Specific Antigen Scr 3 Months I10 - Essential (primary) hypertension Medications: New tizanidine 4 mg PO Q8H PRN 60 tabs 2RF muscle spasticity S22.009A - Unspecified fracture of unspecified thoracic vertebra, initial encounter for closed fracture Discontinued cyclobenzaprine Discontinued Reason: Doctor's Order 10 mg PO TID PRN 60 tabs 2RF muscle spasm S22.009A - Unspecified fracture of unspecified thoracic vertebra, initial encounter for closed fracture
--- OUTSIDE RECORDS SUMMARY | 2024-11-15 11:34 | XMS_ITS | Clinical Summary ---
Author Organization [employer] Address [address] [facility] [address] [place] [address] Care Team Providers Care Field Sales Consultant Name Role Phone Unavailable Primary Care Provider [...] patient's age to complete this topic Insurance [employer] [facility] (O)
== END 2024-11-15 11:56 | disposition home or self-care (01) ==
LOC: HO.HMCH 10:53
PROVIDERS: PCP Internal Medicine; Visit Provider Internal Medicine
DX: Z00.00 Encounter for general adult medical examination without abnormal findings (principal); J45.909 Unspecified asthma, uncomplicated; S22.009A Unspecified fracture of unspecified thoracic vertebra, initial encounter for closed fracture; D47.1 Chronic myeloproliferative disease; K22.70 Barrett's esophagus without dysplasia; F41.1 Generalized anxiety disorder; F10.10 Alcohol abuse, uncomplicated; Z72.0 Tobacco use

== ENCOUNTER → 2024-11-15 10:53 | Outpatient (BNVA) | payer OTHER, SELFPAY | PROVIDERS: PCP Internal Medicine; Visit Provider Internal Medicine | DX: Z00.00 Encounter for general adult medical examination without abnormal findings (principal); D47.1 Chronic myeloproliferative disease; K22.70 Barrett's esophagus without dysplasia; F41.1 Generalized anxiety disorder; F10.10 Alcohol abuse, uncomplicated; I10 Essential (primary) hypertension; J44.9 Chronic obstructive pulmonary disease, unspecified; D73.5 Infarction of spleen; D75.1 Secondary polycythemia; M47.812 Spondylosis without myelopathy or radiculopathy, cervical region; S22.009A Unspecified fracture of unspecified thoracic vertebra, initial encounter for closed fracture; X58.XXXA Exposure to other specified factors, initial encounter; Y93.9 Activity, unspecified; Y92.9 Unspecified place or not applicable; Y99.9 Unspecified external cause status; Z79.01 Long term (current) use of anticoagulants | CPT/HCPCS: 99396 ==

== ENCOUNTER 2024-12-24 08:50 | Outpatient (REF) | payer OTHER, SELFPAY ==
--- OUTSIDE RECORDS SUMMARY | 2024-12-24 09:36 | XMS_ITS | Clinical Summary ---
Author Organization [employer] Address [address] [facility] [address] [place] [address] Care Team Providers Care Funeral Service Apprentice Name Role Phone Unavailable Primary Care Provider [...] patient's age to complete this topic Insurance [employer] [facility] (O)
== END 2024-12-24 08:51 | disposition home or self-care (01) ==
LOC: HO.BBR 08:50
PROVIDERS: PCP Internal Medicine; Visit Provider Internal Medicine
DX: D75.1 Secondary polycythemia (principal)
CPT/HCPCS: 85014; 85018; 99195

== ENCOUNTER → 2025-01-07 07:39 | Outpatient (REF) | payer OTHER, SELFPAY ==
--- OUTSIDE RECORDS SUMMARY | 2025-01-07 07:41 | XMS_ITS | Clinical Summary ---
Author Organization [facility] Address [address] [facility] [address] [place] [address] Care Team Providers Care Inspector Quality Assurance Name Role Phone Unavailable Primary Care Provider [...] patient's age to complete this topic Insurance [employer] [facility] (O)
--- NOTE | 2025-01-07 07:42 | CA_ITS ---
Transthoracic Echocardiogram Patient (Last, First, Middle): Kenji Abbasi A Gender: M Date of : 1970 Age: 54 Procedure Date: 01/07/2025 Procedure Type: Transthoracic Echocardiogram Location: OP Height: 185. cm Weight: 79.38 kg BSA: 2.03 m2 Heart Rate: 66 bpm BP: 132 / 75 mmHg Turret Lathe Set Up Operator: ANDREW Referring MD: Meche Jamil MD Lead Java Programmer: Jt Grace MD Symptoms: I10 - Essential (primary) hypertension Study Quality: Adequate ECG Rhythm: Sinus Conclusions: - 1. Normal LV ejection fraction of 65-70% with grade 1 diastolic dysfunction 2. Moderate biatrial enlargement 3. Moderately dilated right ventricular with preserved systolic function 4. Normal cardiac valvular Dopplers 5. Normal RV systolic pressure 6. No gross pericardial effusion Findings Left Ventricle Normal left ventricular size, thickness, and systolic function. The visually estimated ejection fraction is between 65-70%. Spectral Doppler is indicative of an impaired relaxation filling pattern. E/E prime ratio is <8, consistent with normal filling pressures. Evidence suggests grade I (mild) diastolic dysfunction. Right Ventricle Moderately increased right ventricular cavity size. There is normal right ventricular systolic function. Atria Moderate biatrial enlargement. Interatrial shunt cannot be excluded. Aortic Valve Normal aortic valve structure and function. There is no aortic valve stenosis. There is no aortic valve regurgitation. Mitral Valve Normal mitral valve structure and function. There is trace mitral valve regurgitation. There is no mitral valve stenosis. Pulmonic Valve The pulmonic valve is likely normal. There is trace pulmonic valve regurgitation. Tricuspid Valve Normal tricuspid valve structure. There is trace tricuspid valve regurgitation. The right ventricular systolic pressure is normal. The right ventricular systolic pressure is 12 mmHg. Normal right atrial pressure. There is no evidence of pulmonary hypertension. Great Vessels All visible segments of the aorta are normal in size. The pulmonary artery was not well visualized. There is no dilatation of the ascending aorta measuring 3.30 cm. Venous The inferior vena cava is normal in size and collapses greater than 50% with inspiration. Pericardium/Pleural There is no evidence of pericardial effusion. Prior Study Comparison No prior study available for comparison. Recommendations, Care & Conclusions Recommend contrast study to evaluate intracardiac shunting. Measurements 2D Linear Measurements IVSd: 1.08 0.6-0.9/0.6-1.0 cm LVIDd: 3.85 3.9-5.3/4.2-5.9 cm LVIDd Index: 1.90 2.4-3.2/2.2-3.1 cm/m2 LVIDs: 2.97 2.0-3.6 cm LVPWd: 1.07 0.7-1.1 cm LA Diam: 3.80 2.7-3.8/3.0-4.0 cm LAIDs Index: 1.87 1.5-2.3 cm/m2 LV Mass: 165.29 67-162/88-224 g LV Mass Index: 81.42 43-95/49-115 g/m2 LVOT Diam: 2.30 3.0+(-)1.3 cm 2D Systolic Function EF 4C: 69.80 >55% EF 2C: 70.00 >55% EF BiP: 69.40 >55% Mitral Valve MV Pk E: 0.54 MV PK A: 0.63 MV Decel Time: 292.00 E/A: 0.80 E'Lateral: 10.40 E'Medial: 6.96 E/E' Med: 7.70 E/E' Lat: 5.20 PHT: 86.00 MVA PHT: 2.56 Decel Elmore: 1.83 Aortic Valve AoV Pk Augusto: 1.55 AoV Mn Augusto: 0.99 AoV VTI: 0.31 AoV Pk Grad: 10.00 Aov Mn Grad: 5.00 BRANDEE Cont.VTI: 3.49 LVOT LVOT Pk Augusto: 1.14 LVOT Mn Augusto: 0.84 LVOT VTI: 0.26 LVOT Pk Grad: 5.00 LVOT Mn Grad: 3.00 LVOT Diam: 2.30 LVOT Area: 4.15 Diastolic Function MV Pk E: 0.54 MV Pk A: 0.63 E/A: 0.80 E'Medial: 6.96 E/E' Med: 7.70 E' Laterial: 10.40 E/E' Lat: 5.20 Right Ventricle TAPSE (mm): 27.60 TVS' Augusto: 11.20 Tricuspid Valve TR Pk Augusto: 1.52 TR Pk Grad: 9.00 RA Press: 3.00 RVSP: 12.00 Great Vessels Aorta Sinus of Valsalva: 3.50 2.0-3.5 cm Ao Asc: 3.30 2.1-3.4 cm Ao Arch: 3.40 Pulmonary Veins Pulm Vein S/D 1.50 Pulmonary Valve PV Pk Augusto: 1.09 Peak PV Grad: 5.00 Updated in Other Vendor System with Status of Final Jt Grace MD electronically signed on 01/07/2025 4:05:03 PM with status of Final
== END ==
LOC: HO.CARD 07:39
PROVIDERS: PCP Internal Medicine; Visit Provider Internal Medicine
DX: I10 Essential (primary) hypertension (principal)
CPT/HCPCS: 93306

== ENCOUNTER → 2025-01-07 07:42 | Outpatient (BNV) | payer OTHER, SELFPAY | PROVIDERS: PCP Internal Medicine; Visit Provider Internal Medicine Cardiovascular Disease | DX: I51.7 Cardiomegaly (principal) | CPT/HCPCS: 93306 ==

== ENCOUNTER 2025-02-24 08:54 | Outpatient (REF) | payer OTHER, SELFPAY ==
--- OUTSIDE RECORDS SUMMARY | 2025-02-24 09:04 | XMS_ITS | Clinical Summary ---
Author Organization [employer] Address [address] [facility] [address] [place] [address] Care Team Providers Care Children'[facility] T[facility] Nurs[facility] Name Role Phone Unavailable Primary Care Provider [...] of 2) 10/17/2019 COVID-19 Vaccine (1 - 2024-2 6 season) 2024 Influenza Vaccine (#1) 2024 FOBT [...] patient's age to complete this topic Insurance [employer] [facility] (O)
== END 2025-02-24 08:55 ==
LOC: HO.BBR 08:54
PROVIDERS: PCP Internal Medicine; Visit Provider Internal Medicine
DX: D75.1 Secondary polycythemia (principal)
CPT/HCPCS: 85018; 99195